=== PATIENT | male | born 1955 | race Caucasian/White ===

== ENCOUNTER 2017-10-08 10:34 | Inpatient (IN) | payer OTHER ==
[~2017-10-08] VITALS: Ht 182.9 cm; Wt 131.7 kg
--- NOTE | 2017-10-08 10:56 | ED UPPER/LOWER EXTREMITY COMPL ---
History of Present Illness General Chief Complaint: Lower Extremity Problems Stated Complaint: BIBA S/P L KNEE BUCKLE AND SWELLING TO LOWER EXT Source: patient Exam Limitations: no limitations Vital Signs & Intake/Output Vital Signs & Intake/Output Vital Signs Date Time Temp Pulse Resp B/P B/P Pulse O2 O2 Flow FiO2 Mean Ox Delivery Rate 10/08 1606 102 186/87 10/08 1531 98.6 102 22 186/87 95 Room Air 10/08 1406 98.4 86 15 198/93 94 Room Air Room Air 10/08 1036 98.5 86 18 198/100 99 Allergies Coded Allergies: No Known Allergies (10/08/17) Reconcile Medications Bupropion HCl (Wellbutrin XL) (Unknown Strength) TAB.ER.24H (Unknown Dose) PO DAILY MENTAL HEALTH (Reported) Ibuprofen 600 MG TABLET 1 TAB PO Q6P PRN PAIN with food Metformin HCl (Unknown Strength) TABLET (Unknown Dose) PO BID DIABETES ( Reported) Oxycodone HCl/Acetaminophen (Percocet 5-325 MG Tablet) 5 MG-325 MG TABLET 1-2 TAB PO BID knee pain Zolpidem Tartrate (Ambien) (Unknown Strength) TABLET (Unknown Dose) PO QPM SLEEP (Reported) Triage Note: 62M BIBA FROM HOME AFTER L KNEE GAVE OUT WHILE GOING DOWN A STAIR. FELL DOWN THREE STEPS, AND WAS ON THE FLOOR SINCE YESTERDAY. DENIES HEADSTRIKE OR LOC. MALODOROUS OF URINE. NOTABLE LLE SWELLING Triage Nurses Notes Reviewed? yes HPI: Patient presents for evaluation of a left knee injury that occurred last night. Patient states over the years is knee has had episodes of achiness that he attributed to "old age". He states he was going down a set of 3 stairs last night when the knee "buckled" causing him to fall. He suffered a small abrasion over the anterior aspect of the left leg. Since then he has had a severe sharp stabbing pain over the medial and posterior aspect of the left knee that worsens with palpation and movement. (Zee LINDSAY,Shan Felder) Past History Travel History Traveled to [place] past 21 day No Medical History Any Pertinent Medical History? see below for history Cardiovascular: hypertension, hyperlipidemia Psychiatric: anxiety, depression Psychosocial History What is your primary language Cuban Tobacco Use: Refused to answer (Zee LINDSAY,Shan Felder) Surgical History Surgical History: non-contributory Family History Hx Contributory? No (Ayesha LINDSAY,Juice) Review of Systems Review of Systems Constitutional: Reports: no symptoms. EENTM: Reports: no symptoms. Respiratory: Reports: no symptoms. Cardiovascular: Reports: no symptoms. Gastrointestinal/Abdominal: Reports: no symptoms. Genitourinary: Reports: no symptoms. Musculoskeletal: Reports: see HPI. Skin: Reports: no symptoms. Neurological/Psychological: Reports: no symptoms. Hematologic/Endocrine: Reports: no symptoms. Immunological: Reports: no symptoms. All Other Systems: Reviewed and Negative (Zee LINDSAY,Shan Felder) Physical Exam Physical Exam General Appearance: SEE BELOW Comments: Gen.: Well-nourished, well-developed, no acute respiratory distress. Head: Normocephalic, atraumatic. Eyes: Normal inspection bilaterally Ears: Normal inspection bilaterally Nose: Normal inspection Throat/mouth : Moist mucosa Neck: Supple, full range of motion, no goiter Heart: Regular rate and rhythm Lungs: Quiet respirations Back: Normal range of motion Extremities: Left knee: Tenderness, soft tissue swelling and mild ecchymoses of the medial aspect of the left knee, the left thigh is nontender, the left ankle and foot are nontender. Easily palpable left dorsalis pedis and posterior tibialis pulses. Sensation to the foot and ankle is intact. Neurologic: Cranial nerves grossly intact, speech is clear Skin: warm and dry Psychiatric: Calm, cooperative, no apparent delusions or hallucinations (Zee LINDSAY,Shan Felder) Progress Plan of Care: Orders Procedure Date/time Status Regular Diet 10/08 D Active Patient Data 10/08 1618 Active URINALYSIS 10/08 1545 Active OXYGEN SETUP (GEN) 10/08 1541 Active Saline Lock 10/08 1541 Active Admit to inpatient 10/08 1541 Active Vital Signs 10/08 1541 Active Activity/Ambulation 10/08 1541 Active Code Status 10/08 1541 Active Durable Medical Equipment 10/08 1255 Active ETHANOL 10/08 1110 Complete CREATINE PHOSPHOKINASE 10/08 1110 Complete CBC WITHOUT DIFFERENTIAL 10/08 1110 Complete BASIC METABOLIC PANEL 10/08 1110 Complete Current Medications Sig/Shan Start time Last Medication Dose Stop Time Status Admin Sodium Chloride 1,000 ML BOLUS ONE 10/08 1545 AC 10/08 (Normal Saline 0.9%) 10/08 1644 1606 Laboratory Tests 10/08/17 1157: Anion Gap 10, Estimated GFR > 60, BUN/Creatinine Ratio 26.3 H, Glucose 120 H, Calcium 9.8, Creatine Kinase 402 H, CBC w Diff NO MAN DIFF REQ, RBC 4.34 L, MCV 85.8, MCH 30.1, MCHC 35.1, RDW 14.5, MPV 7.5, Gran % 78.1 H, Lymphocytes % 8.9 L, Monocytes % 12.5 H, Eosinophils % 0.2, Basophils % 0.3, Absolute Granulocytes 8.4 H, Absolute Lymphocytes 1.0 L, Absolute Monocytes 1.3 H, Absolute Eosinophils 0, Absolute Basophils 0, Serum Alcohol < 10.0 Radiology Impression: PATIENT: MELISSA MORALES PRESENT AGE: 62 PATIENT ACCOUNT NO: [id number] : 53 LOCATION: [facility] ORDERING PHYSICIAN: Shan Koch MD SERVICE DATE: 10/08/17 EXAM TYPE: RAD - XRY-KNEE COMPLETE LEFT; [id number], LEFT EXAMINATION: XR KNEE, LEFT XR TIBIA AND FIBULA, LEFT CLINICAL INFORMATION: Status post fall. Medial left knee pain/tenderness. COMPARISON: None TECHNIQUE: AP and lateral views of the left tibia and fibula were obtained. FINDINGS: There is a comminuted, mildly depressed tibial plateau fracture along the lateral aspect of the proximal tibia. No other tibial, femoral, or fibular fracture demonstrated. The ankle mortise appears congruent. Plantar calcaneal spurring. Distal Achilles enthesopathy. Age-indeterminate focal mineralization along the dorsal aspect of the navicular, favor nonacute. Moderate knee joint effusion. IMPRESSION: Comminuted, mildly depressed fracture of the lateral aspect of the tibial plateau. DICTATED BY: Wilmer Frazier MD DATE/TIME DICTATED:10/08/171215 MARITIME OFFICER:DRE DATE/TIME TRANSCRIBED:10/08/171215 CONFIDENTIAL, DO NOT COPY WITHOUT APPROPRIATE AUTHORIZATION. <Electronically signed in Other Vendor System> SIGNED BY: Wilmer Frazier MD 10/08/17 1234 Comments: 10/08/2017 11:11:01 AM Patient's nurse states that Melissa has provided additional information including the fact that he was on the floor for a good portion of the evening secondary to his injury. 10/08/2017 1:23:51 PM I have updated Melissa on x-ray report, orthopedist being paged. 10/08/2017 2:38:23 PM patient's case discussed with Dr. Henry suggest a compression dressing and knee immobilizer. He will see patient next week in his office. (Zee LINDSAY,Shan Felder) Differential Diagnosis: dislocation, fracture, sprain (Ayesha LINDSAY,Juice) Departure Departure Condition: Stable Clinical Impression Primary Impression: Tibial plateau fracture, left Qualifiers: Encounter type: initial encounter Fracture type: closed Qualified Code: S82.142A - Displaced bicondylar fracture of left tibia, initial encounter for closed fracture Referrals: Batool LINDSAY,Quinton Fritz Additional Instructions: No weightbearing on your left leg. Keep the knee immobilizer in place until you see Dr. Henry in follow-up. Use crutches when ambulating. Ice and elevation over the next 48 hours. Ibuprofen 600 mg every 6 hours as needed for pain. Add Percocet if necessary. Notify your primary care doctor of this emergency department visit and treatment plan (you might require medical clearance). He concerns or sudden worsening. Please note that there might be incidental findings in your evaluation that are unrelated to the current emergency department visit. Please notify your primary care doctor about this emergency department visit in order to obtain and review all of the testing performed so that these incidental findings can be monitored as needed. If you had an x-ray performed, please understand that some fractures or other findings may not be seen on the initial set of x-rays. If your symptoms persist you might need a repeat set of x-rays to check for such a fracture. If you had a laceration evaluated, please understand that foreign bodies such as glass or wood may not be visible to the naked eye or on plain x-rays. If the wound becomes red, swollen, increasingly more painful or if there is any drainage from the wound, please have it reevaluated by a physician for the possibility of a retained foreign body. If you're unable to follow up as outlined in the discharge instructions please return to the emergency department. Thank you for choosing the Emergency Department for your care. It was a pleasure to serve you today. Shan Koch M.D. [facility] Departure Forms: Customer Survey General Discharge Information Prescriptions: Current Visit Scripts Ibuprofen 1 TAB PO Q6P PRN PAIN #20 TAB with food Oxycodone HCl/Acetaminophen (Percocet 5-325 MG Tablet) 1-2 TAB PO BID #30 TAB Admission Note Documentation of Exam: Documentation of any treatments & extenuating circumstances including Concerns Regarding Discharge (functional status, medication knowledge or non-compliance, living conditions, etc.) that warrant an admission rather than observation: Patient is suffering severe left knee pain secondary to a displaced tibial plateau fracture but will ultimately require surgical intervention. Despite parenteral narcotics and oral narcotics he is still severely debilitated and unable to ambulate safely even with a knee immobilizer and crutches. I feel she would not be able to comply with outpatient treatment. At this point he requires hospitalization for narcotic pain relievers, ice and elevation of the affected extremity and orthopedic consultation. I feel this patient will require a multiple day hospitalization. (Zee LINDSAY,Shan Felder) Departure Disposition: STILL A PATIENT Admission Note Spoke With: Mae LINDSAY,Mary Documentation of Exam: Documentation of any treatments & extenuating circumstances including Concerns Regarding Discharge (functional status, medication knowledge or non-compliance, living conditions, etc.) that warrant an admission rather than observation: (Ayesha LINDSAY,Juice)
[2017-10-08 12:00] LABS: ABSOLUTE BASOPHIL COUNT 0 /CUMM (0.0-0.2); ABSOLUTE EOSINOPHIL COUNT 0 /CUMM (0.0-0.7); ABSOLUTE GRANULOCYTE CT 8.4 /CUMM (1.4-6.5); ABSOLUTE MONOCYTE COUNT 1.3 /CUMM (0.10-0.60); BASOPHIL % 0.3 % (0.0-2.0); EOSINOPHIL % 0.2 % (0-5); GRANULOCYTE % 78.1 % (42.2-75.2); HEMATOCRIT 37.2 % (42-52); MEAN CORPUSCULAR HGB 30.1 PG (27.0-31.0); MEAN CORPUSCULAR HGB CONC 35.1 G/DL (33.0-37.0); MEAN CORPUSCULAR VOLUME 85.8 FL (80.0-94.0); MEAN PLATELET VOLUME 7.5 FL (7.4-10.4); PLATELET COUNT 178 /CUMM (130-400); RBC DISTRIBUTION WIDTH 14.5 % (11.5-14.5); RED BLOOD CELL CT 4.34 /CUMM (4.70-6.10); WHITE BLOOD CELL COUNT 10.7 /CUMM (4.8-10.8)
--- NOTE | 2017-10-08 12:34 | RADIOLOGY REPORT ---
EXAMINATION: XR KNEE, LEFT XR TIBIA AND FIBULA, LEFT CLINICAL INFORMATION: Status post fall. Medial left knee pain/tenderness. COMPARISON: None TECHNIQUE: AP and lateral views of the left tibia and fibula were obtained. FINDINGS: There is a comminuted, mildly depressed tibial plateau fracture along the lateral aspect of the proximal tibia. No other tibial, femoral, or fibular fracture demonstrated. The ankle mortise appears congruent. Plantar calcaneal spurring. Distal Achilles enthesopathy. Age-indeterminate focal mineralization along the dorsal aspect of the navicular, favor nonacute. Moderate knee joint effusion. IMPRESSION: Comminuted, mildly depressed fracture of the lateral aspect of the tibial plateau.
[2017-10-08] MEDS ORDERED: WELLBUTRIN XL300 M2 PO (12:55)
[2017-10-08] MEDS ORDERED: METFORMIN HCL500 M3 PO (12:55)
[2017-10-08] MEDS ORDERED: AMBIEN5 M1 PO (12:55)
[2017-10-08] MEDS ORDERED: IBUPROFEN600 M1 PO (14:48)
[2017-10-08] MEDS ORDERED: PERCOCET 5-3251 EACH PO (14:48)
--- NOTE | 2017-10-08 16:11 | History & Physical ---
General Information and HPI Allergies/Medications Allergies: Coded Allergies: No Known Allergies (10/08/17) Home Med list Bupropion HCl (Wellbutrin XL) (Unknown Strength) TAB.ER.24H (Unknown Dose) PO DAILY MENTAL HEALTH (Reported) Ibuprofen 600 MG TABLET 1 TAB PO Q6P PRN PAIN with food Metformin HCl (Unknown Strength) TABLET (Unknown Dose) PO BID DIABETES ( Reported) Oxycodone HCl/Acetaminophen (Percocet 5-325 MG Tablet) 5 MG-325 MG TABLET 1-2 TAB PO BID knee pain Zolpidem Tartrate (Ambien) (Unknown Strength) TABLET (Unknown Dose) PO QPM SLEEP (Reported) Past History Travel History Traveled to [place] past 21 day No Medical History Cardiovascular: hypertension, hyperlipidemia Psychiatric: anxiety, depression Core Measures/Misc (01/03) Sepsis (View protocol) If YES complete Sepsis Event Note If YES complete Sepsis Event Note
--- NOTE | 2017-10-08 16:52 | History & Physical ---
Robert Mcgarry MDapna 10/08/17 2073: General Information and HPI History of Present Illness: 62-year-old gentleman with past medical history of hypertension, hyperlipidemia, anxiety, depression, came to [facility] with complaints of fall yesterday. Patient recently came from [place] to this fibest's house. Patient missed his blood pressure medication for the past 4 days. Patient took wine last night had his dinner and about to get down from the stairs he slipped balance and fell 3 stairs down. He denies loss of consciousness, seizures, bowel or bladder incontinence, chest pain, palpitations, headache, head injury. He was immediately taken to the couch by his fibest and her son. He was oriented well during that time. He woke up today morning and found himself in the floor. Patient denies cardiac, renal, diabetes history. He endorses that he is compliant with his medications. Patient also denies that he has never had chest pain, palpitations are never seen by any janitor and cleaner in the past. At baseline patient does not use cane or walker. Patient used to smoke in the past but drinks beer or wine occasionally on and off. Last night he was under the influence of alcohol. Allergies/Medications Allergies: Coded Allergies: No Known Allergies (10/08/17) Home Med list Bupropion HCl (Wellbutrin XL) (Unknown Strength) TAB.ER.24H 10 MG PO DAILY MENTAL HEALTH (Reported) Ibuprofen 600 MG TABLET 1 TAB PO Q6P PRN PAIN with food Metformin HCl (Unknown Strength) TABLET 500 MG PO BID DIABETES (Reported) Oxycodone HCl/Acetaminophen (Percocet 5-325 MG Tablet) 5 MG-325 MG TABLET 1-2 TAB PO BID knee pain Zolpidem Tartrate (Ambien) (Unknown Strength) TABLET 5 MG PO QPM SLEEP ( Reported) Compliance With Home Meds: GOOD Past History Travel History Traveled to [place] past 21 day No Medical History Cardiovascular: hypertension, hyperlipidemia Respiratory: NONE Gastrointestinal: NONE Hepatic: NONE Psychiatric: anxiety, depression Surgical History Surgical History: non-contributory Past Family/Social History Family History Relations & Conditions if any Relation not specified for: *No pertinent family history Psychosocial History Where do you live? Home Who Do You Live With? self Services at Home: None Primary Language: Kyrgyz Smoking Status: Never Smoked ETOH Use: occasional use Functional Ability ADLs Independent: dressing, eating, toileting, bathing. Ambulation: independent IADLs Independent: shopping, housework, finances, food prep, telephone, transportation , medication admin. Review of Systems Review of Systems Constitutional: Reports: no symptoms. Cardiovascular: Reports: no symptoms. Respiratory: Reports: no symptoms. GI: Reports: no symptoms. Genitourinary: Reports: no symptoms. Musculoskeletal: Reports: no symptoms. Skin: Reports: no symptoms. Exam & Diagnostic Data Last 24 Hrs of Vital Signs/I&O Vital Signs Date Time Temp Pulse Resp B/P B/P Pulse O2 O2 Flow FiO2 Mean Ox Delivery Rate 10/08 1942 Room Air 10/08 1843 170/76 10/08 1825 98.5 90 20 178/92 93 10/08 1638 98.7 89 18 164/71 95 Room Air 10/08 1606 102 186/87 10/08 1531 98.6 102 22 186/87 95 Room Air 10/08 1406 98.4 86 15 198/93 94 Room Air Room Air 10/08 1036 98.5 86 18 198/100 99 Physical Exam General Appearance Alert, Oriented X3, Cooperative, No Acute Distress Cardiovascular Regular Rate, Normal S1, Normal S2, No Murmurs Lungs Clear to Auscultation Abdomen Normal Bowel Sounds, Soft, No Tenderness Neurological Normal Speech, Strength at 5/5 X4 Ext, Normal Tone, Sensation Intact, Cranial Nerves 3-12 NL Extremities No Cyanosis, No Edema, Normal Pulses, left knee- in knee immobiliser Last 24 Hrs of Labs/Germain: Laboratory Tests 10/08/17 1750: Urine Color Pending, Urine Clarity Pending, Urine pH Pending, Ur Specific [place] Pending, Urine Protein Pending, Urine Ketones Pending, Urine Nitrite Pending, Urine Bilirubin Pending, Urine Urobilinogen Pending, Ur Leukocyte Esterase Pending, Ur Microscopic SEDIMENT EXAMINED, Urine RBC Pending, Urine Hemoglobin Pending, Urine Glucose Pending 10/08/17 1157: Anion Gap 10, Estimated GFR > 60, BUN/Creatinine Ratio 26.3 H, Glucose 120 H, Calcium 9.8, Creatine Kinase 402 H, CBC w Diff NO MAN DIFF REQ, RBC 4.34 L, MCV 85.8, MCH 30.1, MCHC 35.1, RDW 14.5, MPV 7.5, Gran % 78.1 H, Lymphocytes % 8.9 L, Monocytes % 12.5 H, Eosinophils % 0.2, Basophils % 0.3, Absolute Granulocytes 8.4 H, Absolute Lymphocytes 1.0 L, Absolute Monocytes 1.3 H, Absolute Eosinophils 0, Absolute Basophils 0, Serum Alcohol < 10.0 Diagnostic Data Other Results Knee x-ray Comminuted, mildly depressed fracture of the lateral aspect of the tibial plateau. Assessment/Plan Assessment: 62-year-old gentleman with past medical history of hypertension, hyperlipidemia, anxiety, depression, came to [facility] with complaints of fall yesterday. Admission vitals Temperature 98.5, pulse 86, respiratory rate 18, blood pressure 198/100----> 164 /71, 99 at room air. Admission labs WBC 10.7, hemoglobin 13.1, hematocrit 37.2, granulocytes 78.1, sodium 140, potassium 4.1, Glucose 120, calcium 9.8, creatinine kinase 402, serum alcohol less than 10 Urine-pending Imaging Knee x-ray Comminuted, mildly depressed fracture of the lateral aspect of the tibial plateau. ED medications Morphine 6 mg subcutaneous once, naproxen 500 mg once, Percocet 1 tab once, Lipitor 10 mg IV once, morphine 4 mg IV once, normal saline bolus thousand ML once. ------ Assessment and plan 1. Hypertensive urgency 2. Tibial fracture 3. Diabetes * Admit in telemetry * Blood pressure monitoring. We will maintain a blood pressure, dropping not more than 20% to avoid any stroke. We will start him on amlodipine and hydralazine as needed. * Tibial fracture-Dr. jones has been contacted over the phone who suggested to do knee mobilization and brace.we will continue the same. * Accu-Cheks. * Diet-heart healthy diet * Code-full code As Ranked By This Provider Problem List: 1. Tibial plateau fracture, left Qualifiers Encounter type: initial encounter Fracture type: closed Qualified Code: S82.142A - Displaced bicondylar fracture of left tibia, initial encounter for closed fracture Core Measures/Misc (01/03) Acute Coronary Syndrome ACS Diagnosis: No Congestive Heart Failure Congestive Heart Failure Diagnosis No Cerebrovascular Accident CVA/TIA Diagnosis: No VTE (View Protocol) VTE Risk Factors Age>40 No Mechanical VTE Prophylaxis d/t Other No VTE Pharm Prophylaxis d/t Other Sepsis (View protocol) Sepsis Present: No If YES complete Sepsis Event Note If YES complete Sepsis Event Note Landen LINDSAY,[facility] 10/08/17 1701: Core Measures/Misc (01/03) Sepsis (View protocol) If YES complete Sepsis Event Note If YES complete Sepsis Event Note Resident Review Statement Resident Statement: examined this patient, discussed with manufacturing intern Other Findings: H Mr. Diane is a pleasant 62-year-old gentleman with past medical history of hypertension, anxiety and depression who was brought in by ambulance after he had a fall. Patient states he was in his usual state of health and is currently visiting [place] from [place] when yesterday at approximately 9:45 PM he felt that his left knee "gave out" and fell down 3 stairs. Denies any head strike head strike or loss of consciousness. After he fell he had help getting onto a couch where he spent the entire night and although was in a significant amount of discomfort managed to get some rest. This morning when he got up he was unable to move prompting his fianc Salvador to call the ambulance who brought him into the emergency department. Patient states that pain was up to a 10 out of 10 in severity. Worse with movement. He was worked up in the ER and unable to go home due to significant immobility and pain and discomfort. Patient otherwise reports good medication compliance and states that he's recently lost weight over the past few years. Patient is a former smoker and recreational alcohol user. He last had some wine approximately 4 units last evening. Patient's pharmacy [facility] Address: [id number] [place] [address] [address], [place] [address] Hours: ROS At the time of clinical interaction the patient denied any fever, chills, nausea , vomiting. Denied any diarrhea or GI upset. E Temperature 98.5, pulse rate 86, respirations 18, blood pressure 198/100, saturating 99% on room air. Gen.: Well-nourished, well-developed, no acute respiratory distress. Head: Normocephalic, atraumatic. Eyes: N So the clinical historyormal inspection bilaterally Ears: Normal inspection bilaterally Nose: Normal inspection Throat/mouth : Moist mucosa Neck: Supple, full range of motion, no goiter Heart: Regular rate and rhythm Lungs: Quiet respirations Back: Normal range of motion Extremities: Left knee: Tenderness, soft tissue swelling. Entired leg in immobilizer. Easily palpable left dorsalis pedis and posterior tibialis pulses. Sensation to the foot and ankle is intact. Neurologic: Cranial nerves grossly intact, speech is clear Skin: warm and dry Psychiatric: Calm, cooperative, no apparent delusions or hallucinations LABS: As Above Imaging: XR KNEE, LEFT XR TIBIA AND FIBULA, LEFT IMPRESSION: Comminuted, mildly depressed fracture of the lateral aspect of the tibial plateau. A Mr. Diane is a pleasant 62-year-old gentleman with past medical history of hypertension, anxiety and depression who was brought in by ambulance after he had a fall. In the emergency department the patient received normal saline. Patient also received 10 mg of labetalol. He also had a consultation with the office of Dr. Jones who recommended the patient will be seen next week. Due to elevated pressure the patient will be admitted to the telemetry service. #Left Tibia mildly depressed fracture #Hypertensive urgency #History of anxiety #History of depression #History of diabetes. Admit patient to telemetry service. Vital signs every 2 hours. Goal blood pressure not to decrease BP more than and 25% in 24 hours. Blood pressure is elevated likely due to pain. Formal orthopedic consultation obtained. We will begin the patient on amlodipine 10 mg daily. If continues to be hypertensive will consider IV hydralazine as needed. Fingersticks 3 times a day at bedtime NovoLog sliding scale. Pain control with ibuprofen and Percocet. For breakthrough pain may use morphine. PT consult in AM Heart healthy diet DVT prophylaxis with Lovenox Patient is a full code. Mae,Mary 10/08/17 1702: Core Measures/Misc (01/03) Sepsis (View protocol) If YES complete Sepsis Event Note If YES complete Sepsis Event Note Attending MD Review Statement Attending Statement Attending MD Statement: examined this patient, discuss w/resident/PA/SIFTING OPERATOR, agreed w/resident/PA/SIFTING OPERATOR, discussed with family, reviewed EMR data (avail), discussed with nursing, discussed with case mgmt, reviewed images, amended to note Attending Assessment/Plan: 62 O/M resident of [place] here to visit with pmh of hypertension, arthritis and depression on meds comes with trip and fall with uncontrolled hypertension. Patient found to have Comminuted, mildly depressed fracture of the lateral aspect of the tibial plateau. Patient required iv labetalol in ER. Patient is known hypertensive non compliant with his medication and BP 198/100 on arrival. Needs orthopedics consult. Start Norvasc and iv hydralazine as needed. Pain control and PT consult. gi/dvt prophylaxis. full code. Plan of care d/wed patient and family bedside in ER. Core Measures/Misc (01/03) Sepsis (View protocol) If YES complete Sepsis Event Note If YES complete Sepsis Event Note Attending MD Review Statement Attending Statement Attending MD Statement: examined this patient, discuss w/resident/PA/SIFTING OPERATOR, agreed w/resident/PA/SIFTING OPERATOR, discussed with family, reviewed EMR data (avail), discussed with nursing, discussed with case mgmt, reviewed images, amended to note Attending Assessment/Plan: 62 O/M resident of [place] here to visit with pmh of hypertension, arthritis and depression on meds comes with trip and fall with uncontrolled hypertension. Patient found to have Comminuted, mildly depressed fracture of the lateral aspect of the tibial plateau. Patient required iv labetalol in ER. Patient is known hypertensive non compliant with his medication and BP 198/100 on arrival. Needs orthopedics consult. Start Norvasc and iv hydralazine as needed. Pain control and PT consult. gi/dvt prophylaxis. full code. Plan of care d/wed patient and family bedside in ER.
[2017-10-08 18:25] VITALS: BP 178/92
[2017-10-08 22:21] VITALS: BP 176/88
[2017-10-08 22:46] VITALS: BP 180/84
--- NOTE | 2017-10-09 04:16 | PN- Housestaff ---
See Addendum Subjective Follow-up For: Hypertensive Urgency Tele-Events Since Last Visit: NSR 86-93 AR: .18 Subjective: Mr. Diane was seen and examined this morning. He is resting comfortably in bed. States that his pain is better controlled. He was able to get his leg in a stable position and ase a result of this he was able to get rest at night. Pain rated 4 out of 10 in severity. Denies any vision changes or any neurological symptoms. Tolerated PO intake well and had supper prior to going to sleep. Review of Systems Constitutional: Reports: see HPI. Objective Last 24 Hrs of Vital Signs/I&O Vital Signs Date Time Temp Pulse Resp B/P B/P Pulse O2 O2 Flow FiO2 Mean Ox Delivery Rate 10/08 2302 96 180/84 10/08 2246 180/84 10/08 2221 99.7 91 18 176/88 95 10/08 1942 Room Air 10/08 1843 170/76 10/08 1825 98.5 90 20 178/92 93 10/08 1638 98.7 89 18 164/71 95 Room Air 10/08 1606 102 186/87 10/08 1531 98.6 102 22 186/87 95 Room Air 10/08 1406 98.4 86 15 198/93 94 Room Air Room Air 10/08 1036 98.5 86 18 198/100 99 Intake & Output 10/09 0800 10/09 0000 10/08 1600 Intake Total 300 1120 Output Total 650 225 Balance -350 895 Intake, IV 1000 Intake, Oral 300 120 Output, Urine 650 225 Patient 135.681 kg Weight Weight Bed scale Measurement Method Physical Exam General Appearance: Alert, Oriented X3, Cooperative Cardiovascular: Regular Rate, Normal S1, Normal S2 Lungs: Clear to Auscultation Abdomen: Normal Bowel Sounds, Soft, No Tenderness Neurological: Sensation Intact, Cranial Nerves 3-12 NL Extremities: Left Leg in immobilizer Current Medications: Current Medications Sig/Shan Start time Last Medication Dose Route Stop Time Status Admin Amlodipine Besylate 10 MG DAILY 10/09 0900 AC PO Amlodipine Besylate 5 MG DAILY 10/08 2245 DC 10/08 PO 2302 Amlodipine Besylate 5 MG DAILY 10/08 1745 DC 10/08 PO 1843 Enoxaparin Sodium 40 MG DAILY 10/08 1800 AC 10/08 SC 1843 Ibuprofen 600 MG TID PRN 10/08 1745 AC PO Insulin Aspart 0 TIDAC 10/09 0800 AC SC Labetalol HCl 0 .STK-MED ONE 10/08 1558 DC IV Labetalol HCl 10 MG ONCE ONE 10/08 1545 DC 10/08 IV 10/08 1546 1606 Morphine Sulfate 2 MG Q6P PRN 10/08 1745 AC 10/08 IV 2302 Morphine Sulfate 0 .STK-MED ONE 10/08 1558 DC .ROUTE Morphine Sulfate 4 MG ONCE ONE 10/08 1545 DC 10/08 IV 10/08 1546 1606 Morphine Sulfate 0 .STK-MED ONE 10/08 1216 DC .ROUTE Morphine Sulfate 6 MG ONCE ONE 10/08 1100 DC 10/08 SC 10/08 1101 1219 Naproxen 0 .STK-MED ONE 10/08 1448 DC PO Naproxen 500 MG ONCE ONE 10/08 1445 DC 10/08 PO 10/08 1446 1450 Oxycodone/ 1 TAB Q6P PRN 10/08 1745 10/09 Acetaminophen PO 0428 Oxycodone/ 0 .STK-MED ONE 10/08 1448 DC Acetaminophen PO Oxycodone/ 1 TAB ONCE ONE 10/08 1445 DC 10/08 Acetaminophen PO 10/08 1446 1450 Sodium Chloride 1,000 ML BOLUS ONE 10/08 1545 DC 10/08 IV 10/08 1644 1606 Last 24 Hrs of Lab/Germain Results Last 24 Hrs of Labs/Mics: Laboratory Tests 10/08/17 1750: Urine Color YEL, Urine Clarity CLEAR, Urine pH 6.0, Ur Specific [place] 1.020, Urine Protein NEG, Urine Ketones NEG, Urine Nitrite NEG, Urine Bilirubin NEG, Urine Urobilinogen 0.2, Ur Leukocyte Esterase TRACE H, Ur Microscopic SEDIMENT EXAMINED, Urine RBC RARE, Urine WBC 3-5 H, Ur Epithelial Cells RARE, Hyaline Casts 1-3 H, Urine Mucus FEW, Urine Hemoglobin NEG, Urine Glucose 100 H 10/08/17 1157: Anion Gap 10, Estimated GFR > 60, BUN/Creatinine Ratio 26.3 H, Glucose 120 H, Calcium 9.8, Creatine Kinase 402 H, CBC w Diff NO MAN DIFF REQ, RBC 4.34 L, MCV 85.8, MCH 30.1, MCHC 35.1, RDW 14.5, MPV 7.5, Gran % 78.1 H, Lymphocytes % 8.9 L, Monocytes % 12.5 H, Eosinophils % 0.2, Basophils % 0.3, Absolute Granulocytes 8.4 H, Absolute Lymphocytes 1.0 L, Absolute Monocytes 1.3 H, Absolute Eosinophils 0, Absolute Basophils 0, Serum Alcohol < 10.0 Assessment/Plan Assessment: Mr. Diane is a pleasant 62-year-old gentleman with past medical history of hypertension, anxiety and depression who was brought in by ambulance after he had a fall. In the emergency department the patient received normal saline. Patient also received 10 mg of labetalol. He also had a consultation with the office of Dr. Henry who recommended the patient will be seen next week. Due to elevated pressure the patient will be admitted to the telemetry service. #Left Tibia mildly depressed fracture #Hypertensive urgency #History of anxiety #History of depression #History of diabetes. Continue on telemetry service. Vital signs every 4 hours. Goal blood pressure not to decrease BP more than and 25% in 24 hours. Blood pressure is elevated likely due to pain. Formal orthopedic consultation obtained. We will continue the patient on amlodipine 10 mg daily. If continues to be hypertensive will consider IV hydralazine as needed. Fingersticks 3 times a day at bedtime NovoLog sliding scale. Pain control with ibuprofen and Percocet. For breakthrough pain may use morphine. PT consult ordered for later this am. Please confirm medication list, patient is on Edarbyclor, but is not sure on the dose. Pharmacy: Patient's pharmacy [email or web address] Address: [address] [place] [address], [place] [address] T: Heart healthy diet DVT prophylaxis with Lovenox Patient is a full code. Problem List: 1. Tibial plateau fracture, left Pain Ratin Pain Location: Left Leg Pain Goal: Remain pain free Pain Plan: Tylenol and morphine Tomorrow's Labs & Rationales: CBC: Montor H/H in the setting of fall, BEP: Monitor electrolytes in the setting of acute illness
[2017-10-09 06:54] VITALS: BP 168/90
[2017-10-09 08:00] VITALS: BP 180/84
[2017-10-09 12:00] VITALS: BP 188/80
[2017-10-09 14:40] VITALS: BP 180/90
[2017-10-09 19:13] VITALS: BP 164/74
--- NOTE | 2017-10-09 20:21 | Cons- Cardiology ---
General Information and HPI Consulting Request Date of Consult: 10/09/17 Requested By: Mary Wall MD Reason for Consult: Hypertension History of Present Illness: The patient is a pleasant 62-year-old male who is visiting [place] from [place]. He presents after a fall. He fell on the stairs in his [facility] house, and he sustained a left tibia fracture. He has a history of hypertension which has been under control on Edarbyclor. He notes that he forgot to bring his medications when he traveled to [place], and he has been off medications for 4 days. He has had no chest pain. He notes mild dyspnea on exertion with activities such as climbing stairs. He does not have any history of heart disease. He did not have any lightheadedness or dizziness at the time of the fall. No palpitations. No nausea or vomiting. Allergies/Medications Allergies: Coded Allergies: No Known Allergies (10/08/17) Home Med List: Bupropion HCl (Wellbutrin XL) (Unknown Strength) TAB.ER.24H 10 MG PO DAILY MENTAL HEALTH (Reported) Ibuprofen 600 MG TABLET 1 TAB PO Q6P PRN PAIN with food Metformin HCl (Unknown Strength) TABLET 500 MG PO BID DIABETES (Reported) Oxycodone HCl/Acetaminophen (Percocet 5-325 MG Tablet) 5 MG-325 MG TABLET 1-2 TAB PO BID knee pain Zolpidem Tartrate (Ambien) (Unknown Strength) TABLET 5 MG PO QPM SLEEP ( Reported) Current Medications: Current Medications Sig/Shan Start time Last Medication Dose Route Stop Time Status Admin Amlodipine Besylate 5 MG DAILY 10/10 0900 AC PO Amlodipine Besylate 10 MG DAILY 10/09 0900 DC 10/09 PO 0855 Amlodipine Besylate 5 MG DAILY 10/08 2245 DC 10/08 PO 2302 Amlodipine Besylate 5 MG DAILY 10/08 1745 DC 10/08 PO 1843 Enoxaparin Sodium 40 MG DAILY 10/08 1800 AC 10/09 SC 0850 Hydrochlorothiazide 12.5 MG ONCE ONE 10/09 1715 DC 10/09 PO 10/09 1716 1725 Hydrochlorothiazide 12.5 MG DAILY 10/09 1600 AC 10/09 PO 1607 Ibuprofen 600 MG TID PRN 10/08 1745 AC 10/09 PO 1607 Insulin Aspart 0 TIDAC 10/09 1200 AC SC Insulin Aspart 0 TIDAC 10/09 0800 DC SC Losartan Potassium 50 MG ONCE ONE 10/09 1500 CAN PO 10/09 1501 Losartan Potassium 50 MG DAILY 10/09 1200 AC 10/09 PO 1317 Morphine Sulfate 2 MG Q6P PRN 10/08 1745 AC 10/09 IV 1447 Oxycodone/ 1 TAB Q6P PRN 10/08 1745 AC 10/09 Acetaminophen PO 1225 Review of Systems Review of Systems: No rash. No tremor. No syncope. All other systems were reviewed, and were noted to be negative. Past History Travel History Traveled to [place] past 21 day No Medical History Blood Transfusion Hx: No Cardiovascular: hypertension, hyperlipidemia Respiratory: NONE Gastrointestinal: NONE Hepatic: NONE Musculoskeletal: NEW TIB FX L ARTHRITIS Psychiatric: anxiety, depression Surgical History Surgical History: non-contributory Family History Relations & Conditions If Any: MOTHER Stroke Psychosocial History Where Do You Live? Home Who Do You Live With? self Services at Home: None Primary Language: Vietnamese Smoking Status: Never Smoked ETOH Use: occasional use Illicit Drug Use: denies illicit drug use Functional Ability ADLs Independent: dressing, eating, toileting, bathing. Ambulation: independent IADLs Independent: shopping, housework, finances, food prep, telephone, transportation , medication admin. Exam & Diagnostic Data Vital Signs and I&O Vital Signs Date Time Temp Pulse Resp B/P B/P Pulse O2 O2 Flow FiO2 Mean Ox Delivery Rate 10/09 1913 99.1 102 24 164/74 94 10/09 1440 99.9 106 20 180/90 96 Room Air 10/09 1317 80 188/80 10/09 1200 106 188/80 10/09 1200 106 188/80 10/09 0855 90 168/90 10/09 0800 93 180/84 10/09 0800 93 180/84 10/09 0654 98.1 87 20 168/90 95 Room Air 10/08 2302 96 180/84 10/08 2246 180/84 10/08 2221 99.7 91 18 176/88 95 Intake & Output 10/09 1600 10/09 0800 10/09 0000 10/08 1600 10/08 0800 10/08 0000 Intake Total 011 880 1325 Output Total 1450 650 225 Balance -1230 -350 895 Intake, IV 20 1000 Intake, Oral 200 300 120 Output, Urine 1450 650 225 Patient 299 lb Weight Weight Bed scale Measurement Method Physical Exam: Gen: The patient is in no acute distress HEENT: Normal nose, ears, and oropharynx. Pupils equal bilaterally. Conjunctiva normal. Neck: Supple with no JVD, no masses, and no thyromegaly Lungs: Clear to auscultation with normal respiratory effort Heart: RRR, S1, S2, no murmurs. No peripheral edema, 2+ pulses in the lower extremities bilaterally Abdomen: Soft, nontender, no masses. No hepatomegaly. No splenomegaly Extremities: No clubbing or cyanosis. Normal muscle strength in the upper and lower extremities Skin: Normal skin turgor with no skin ulcers or lesions noted. Neuro: Cranial nerves intact. Sensation intact Psych: Alert and oriented x 3 with appropriate affect Labs/[place] Results: Laboratory Tests 10/08 10/08 1750 1157 Chemistry Sodium (137 - 145 mmol/L) 140 Potassium (3.5 - 5.1 mmol/L) 4.1 Chloride (98 - 107 mmol/L) 102 Carbon Dioxide (22 - 30 mmol/L) 28 Anion Gap (5 - 16) 10 BUN (9 - 20 mg/dL) 21 H Creatinine (0.7 - 1.2 mg/dL) 0.8 Estimated GFR (>60 ml/min) > 60 BUN/Creatinine Ratio (7 - 25 %) 26.3 H Glucose (65 - 99 mg/dL) 120 H Calcium (8.4 - 10.2 mg/dL) 9.8 Creatine Kinase (55 - 170 U/L) 402 H Hematology CBC w Diff NO MAN DIFF REQ WBC (4.8 - 10.8 /CUMM) 10.7 RBC (4.70 - 6.10 /CUMM) 4.34 L Hgb (14.0 - 18.0 G/DL) 13.1 L Hct (42 - 52 %) 37.2 L MCV (80.0 - 94.0 FL) 85.8 MCH (27.0 - 31.0 PG) 30.1 MCHC (33.0 - 37.0 G/DL) 35.1 RDW (11.5 - 14.5 %) 14.5 Plt Count (130 - 400 /CUMM) 178 MPV (7.4 - 10.4 FL) 7.5 Gran % (42.2 - 75.2 %) 78.1 H Lymphocytes % (20.5 - 51.1 %) 8.9 L Monocytes % (1.7 - 9.3 %) 12.5 H Eosinophils % (0 - 5 %) 0.2 Basophils % (0.0 - 2.0 %) 0.3 Absolute Granulocytes (1.4 - 6.5 /CUMM) 8.4 H Absolute Lymphocytes (1.2 - 3.4 /CUMM) 1.0 L Absolute Monocytes (0.10 - 0.60 /CUMM) 1.3 H Absolute Eosinophils (0.0 - 0.7 /CUMM) 0 Absolute Basophils (0.0 - 0.2 /CUMM) 0 Toxicology Serum Alcohol (<10 MG/DL) < 10.0 Urines Urine Color (YEL,AMB,STR) YEL Urine Clarity (CLEAR) CLEAR Urine pH (5.0 - 8.0) 6.0 Ur Specific [place] (1.001 - 1.035) 1.020 Urine Protein (NEG,<30 MG/DL) NEG Urine Ketones (NEG) NEG Urine Nitrite (NEG) NEG Urine Bilirubin (NEG) NEG Urine Urobilinogen (0.1 - 1.0 EU/dl) 0.2 Ur Leukocyte Esterase (NEG) TRACE H Ur Microscopic SEDIMENT EXAMINED Urine RBC (0 - 5 /HPF) RARE Urine WBC (0 - 2 /HPF) 3-5 H Ur Epithelial Cells (NONE,FEW) RARE Hyaline Casts (0/LPF) 1-3 H Urine Mucus (FEW,NONE) FEW Urine Hemoglobin (NEG) NEG Urine Glucose (N MG/DL) 100 H Diagnostic Data EKG Results EKG tracings independently reviewed, and reveals normal sinus rhythm at 91 with borderline T-wave abnormality. QTc is noted to be 493 Other Results Left lower extremity x-ray: Comminuted, mildly depressed fracture of the lateral aspect of the tibial plateau. Assessment/Plan Assessment/Plan The patient is a 62-year-old male with history of hypertension and hyperlipidemia who presents after a mechanical fall with a tibial fracture. His blood pressure is normally under control on Edarbyclor, which is a combination of an ARB and diuretic. He forgot to bring his medications to [place] and has been off hypertension medications for 4 days. Blood pressure was severely elevated on presentation. Blood pressure is now under control on losartan, hydrochlorthiazide, and amlodipine. Recommendations: * Continue current medications for blood pressure control. If blood pressure remains significantly elevated tomorrow, the losartan dose can be increased * Cardiac risk for surgery is acceptable. The patient is cleared from a cardiac standpoint for repair of the fracture. * Given the prolonged QT, would check a repeat EKG tomorrow Consult Acknowledgment - Thank you for your consult request.
[2017-10-09 23:00] VITALS: BP 176/80
[2017-10-10 03:05] VITALS: BP 148/78
[2017-10-10 06:51] VITALS: BP 150/78
[2017-10-10 08:23] LABS: ABSOLUTE BASOPHIL COUNT 0 /CUMM (0.0-0.2); ABSOLUTE EOSINOPHIL COUNT 0.3 /CUMM (0.0-0.7); ABSOLUTE GRANULOCYTE CT 6.7 /CUMM (1.4-6.5); ABSOLUTE LYMPH COUNT 0.9 /CUMM (1.2-3.4); BASOPHIL % 0.6 % (0.0-2.0); GRANULOCYTE % 75.4 % (42.2-75.2); HEMATOCRIT 36.7 % (42-52); MEAN CORPUSCULAR HGB 29.2 PG (27.0-31.0); MEAN CORPUSCULAR HGB CONC 33.6 G/DL (33.0-37.0); MEAN PLATELET VOLUME 8.2 FL (7.4-10.4); PLATELET COUNT 145 /CUMM (130-400); RBC DISTRIBUTION WIDTH 14.6 % (11.5-14.5); RED BLOOD CELL CT 4.22 /CUMM (4.70-6.10); WHITE BLOOD CELL COUNT 8.9 /CUMM (4.8-10.8)
--- NOTE | 2017-10-10 08:31 | PN- Housestaff ---
Subjective Follow-up For: #Left Tibia mildly depressed fracture #Hypertensive urgency #History of anxiety #History of depression #History of diabetes. Tele-Events Since Last Visit: Normal sinus rhythm, 8599, 0.080.1, no overnight events Subjective: Patient was seen and examined, continues to complain of left lower extremity pain blood pressure remains elevated at 150/78, will be n.p.o. at midnight for surgery tomorrow Review of Systems Constitutional: Reports: see HPI. Objective Last 24 Hrs of Vital Signs/I&O Vital Signs Date Time Temp Pulse Resp B/P B/P Pulse O2 O2 Flow FiO2 Mean Ox Delivery Rate 10/10 0908 88 150/78 10/10 0907 88 150/78 10/10 0651 98.1 91 20 150/78 94 Room Air 10/10 0305 98.5 90 20 148/78 95 Room Air 10/10 0002 98 180/80 10/09 2333 100.9 10/09 2300 100.9 100 19 176/80 94 10/09 1913 99.1 102 24 164/74 94 10/09 1440 99.9 106 20 180/90 96 Room Air 10/09 1317 80 188/80 Intake & Output 10/10 1600 10/10 0800 10/10 0000 Intake Total 350 120 Output Total 700 875 Balance -350 -755 Intake, Oral 350 120 Output, Urine 700 875 Physical Exam General Appearance: Alert, Oriented X3, Cooperative, No Acute Distress HEENT: Atraumatic, PERRLA, EOMI, Mucous Membr. moist/pink Cardiovascular: Normal S1, Normal S2 Lungs: Clear to Auscultation Abdomen: Normal Bowel Sounds, Soft, No Tenderness Extremities: No Clubbing, No Cyanosis, No Edema Assessment/Plan Assessment: Mr. Diane is a pleasant 62-year-old gentleman with past medical history of hypertension, anxiety and depression who was brought in by ambulance after he had a fall. Problem list #Left Tibia mildly depressed fracture #Hypertensive urgency #History of anxiety #History of depression #History of diabetes. Continue on telemetry service. Vital signs every 4 hours. Goal blood pressure not to decrease BP more than and 25% in 24 hours. Blood pressure is elevated likely due to pain. Orthopedic recommendation appreciated We will continue the patient on amlodipine 10 mg daily. If continues to be hypertensive will consider increasing the losartan dose to 100 mg daily Patient will be n.p.o. at midnight for surgery Start gentle IV fluid hydration at midnight Fingersticks 3 times a day at bedtime NovoLog sliding scale. Pain control with ibuprofen and Percocet. For breakthrough pain may use morphine. PT evaluation We will call the pharmacy to confirm with the medication list, patient is on Edarbyclor, which is AZILSARTAN /hydrochlorothiazide 40/12.5 pharmacy: Patient's pharmacy [facility] Address: [address] [place] [address], [place] [id number] T: [phone] Heart healthy diet DVT prophylaxis with Lovenox Patient is a full code. Problem List: 1. Tibial plateau fracture, left 2. Hypertensive urgency Pain Ratin Pain Location: N/A Pain Goal: Remain pain free Pain Plan: PATHWAY Tomorrow's Labs & Rationales: CBC BEP
--- NOTE | 2017-10-10 09:28 | PN- Orthopedic ---
Surgical Brief Attending Note Brief Attending Note: Patient seen this morning. Resting comfortably. Patient is cleared for surgery tomorrow patient will undergo open reduction internal fixation of a left tibial plateau fracture. The risks and benefits of the procedure were discussed the patient in detail. Consent was not signedPatient seen this morning. Resting comfortably. Patient is cleared for surgery tomorrow patient will undergo open reduction internal fixation of a left tibial plateau fracture. The risks and benefits of the procedure were discussed the patient detail. Consent was signed. On examination the left lower exam is neurovascular intact. He is moving his toes. There is no signs of impending compartment syndrome. On examination the left lower extremity neurovascular intact. He is moving his toes. There is no signs of impending compartment syndrome. Sensation light touch is grossly intact distally. Sensation light touch is grossly intact distally.. Patient will be made nothing by mouth past midnight. Continue to monitor hypertension. Plan for mid afternoon surgery. H Plan for mid afternoon surgery. Hypertension. Continue to monitor patient will be made n.p.o. past midnight.
--- NOTE | 2017-10-10 10:39 | PN- Att Addend ---
Attending Addendum Attending Brief Note Patient seen and examined, and said that he had an uncomfortable night secondary to pain in the room temperature was high. This morning he is feeling somewhat comfortable. Vital Signs Date Time Temp Pulse Resp B/P B/P Pulse O2 O2 Flow FiO2 Mean Ox Delivery Rate 10/10 0908 88 150/78 10/10 0907 88 150/78 10/10 0651 98.1 91 20 150/78 94 Room Air 10/10 0305 98.5 90 20 148/78 95 Room Air 10/10 0002 98 180/80 10/09 2333 100.9 10/09 2300 100.9 100 19 176/80 94 10/09 1913 99.1 102 24 164/74 94 10/09 1440 99.9 106 20 180/90 96 Room Air 10/09 1317 80 188/80 10/09 1200 106 188/80 10/09 1200 106 188/80 on exam; aox,3 nad. cv; s1, s2, rrr resp; clear abd; soft, nt, bs+ ext; no edema lle is wrapped in immobilizer. Laboratory Tests 10/10 0650 Chemistry Sodium (137 - 145 mmol/L) 139 Potassium (3.5 - 5.1 mmol/L) 3.3 L Chloride (98 - 107 mmol/L) 99 Carbon Dioxide (22 - 30 mmol/L) 30 Anion Gap (5 - 16) 9 BUN (9 - 20 mg/dL) 14 Creatinine (0.7 - 1.2 mg/dL) 0.8 Estimated GFR (>60 ml/min) > 60 BUN/Creatinine Ratio (7 - 25 %) 17.5 Hematology CBC w Diff NO MAN DIFF REQ WBC (4.8 - 10.8 /CUMM) 8.9 RBC (4.70 - 6.10 /CUMM) 4.22 L Hgb (14.0 - 18.0 G/DL) 12.3 L Hct (42 - 52 %) 36.7 L MCV (80.0 - 94.0 FL) 87.0 MCH (27.0 - 31.0 PG) 29.2 MCHC (33.0 - 37.0 G/DL) 33.6 RDW (11.5 - 14.5 %) 14.6 H Plt Count (130 - 400 /CUMM) 145 MPV (7.4 - 10.4 FL) 8.2 Gran % (42.2 - 75.2 %) 75.4 H Lymphocytes % (20.5 - 51.1 %) 9.6 L Monocytes % (1.7 - 9.3 %) 11.4 H Eosinophils % (0 - 5 %) 3.0 Basophils % (0.0 - 2.0 %) 0.6 Absolute Granulocytes (1.4 - 6.5 /CUMM) 6.7 H Absolute Lymphocytes (1.2 - 3.4 /CUMM) 0.9 L Absolute Monocytes (0.10 - 0.60 /CUMM) 1.0 H Absolute Eosinophils (0.0 - 0.7 /CUMM) 0.3 Absolute Basophils (0.0 - 0.2 /CUMM) 0 A/P: 62-year-old male originally from [facility] who is visiting here with past medical history significant for hypertension, anxiety, depression, borderline diabetes admitted with a mechanical fall and sustained Comminuted, mildly depressed fracture of the lateral aspect of the tibial plateau. Also had uncontrolled hypertension but BP seems to be better today. Patient currently on ARB, hydrate with high side and calcitonin ronak. Please call patient's pharmacy and confirm his home medication dose. As mentioned in the cardiology note, if blood pressure remains high then dose of losartan can be increased. Please replete potassium. No other acute events overnight on telemetry. Patient currently on morphine and oxycodone for pain control. Appreciate input from all the consultants. Currently patient plan for surgery tomorrow afternoon. Patient should be kept nothing by mouth after midnight and should be started on gentle IV hydration. Patient on Lovenox for DVT prophylaxis.
--- NOTE | 2017-10-10 11:20 | Event Note ---
Event Note Event Note: PER DR BENSON, PT WILL GO TO [place] TOMORROW FOR ORIF LEFT TIBIAL PLATEAU FRACTURE WILL MAKE NPO AFTER MIDNIGHT, MEDS WITH SIPS IN AM OK HYDRATE WITH IVF AWAITING MEDICAL/CARDIAC CLEARENCE
--- NOTE | 2017-10-10 11:56 | PN- Cardiology ---
Subjective Subjective: The patient continues to complain of left lower extremity pain. No chest pain. No shortness of breath. No palpitations. No diaphoresis. No nausea or vomiting. Blood pressure continues to be elevated Objective Vital Signs and I&Os Vital Signs Date Time Temp Pulse Resp B/P B/P Pulse O2 O2 Flow FiO2 Mean Ox Delivery Rate 10/10 0908 88 150/78 10/10 0907 88 150/78 10/10 0651 98.1 91 20 150/78 94 Room Air 10/10 0305 98.5 90 20 148/78 95 Room Air 10/10 0002 98 180/80 10/09 2333 100.9 10/09 2300 100.9 100 19 176/80 94 10/09 1913 99.1 102 24 164/74 94 10/09 1440 99.9 106 20 180/90 96 Room Air 10/09 1317 80 188/80 10/09 1200 106 188/80 10/09 1200 106 188/80 Intake & Output 10/10 1600 10/10 0800 10/10 0000 10/09 1600 10/09 0800 10/09 0000 Intake Total 350 120 614 207 3862 Output Total 986 454 8826 650 225 Balance -350 -755 -1230 -350 895 Intake, IV 20 1000 Intake, Oral 350 120 200 300 120 Output, Urine 704 192 5735 650 225 Patient 299 lb Weight Weight Bed scale Measurement Method Physical Exam: Gen: The patient is in no acute distress HEENT: Normal nose, ears, and oropharynx. Pupils equal bilaterally. Conjunctiva normal. Neck: Supple with no JVD, no masses, and no thyromegaly Lungs: Clear to auscultation with normal respiratory effort Heart: RRR, S1, S2, no murmurs. No peripheral edema, 2+ pulses in the lower extremities bilaterally Abdomen: Soft, nontender, no masses. No hepatomegaly. No splenomegaly Extremities: No clubbing or cyanosis. Normal muscle strength in the upper and lower extremities Skin: Normal skin turgor with no skin ulcers or lesions noted. Neuro: Cranial nerves intact. Sensation intact Current Medications: Current Medications Sig/Shan Start time Last Medication Dose Route Stop Time Status Admin Acetaminophen 650 MG ONCE ONE 10/09 2314 DC 10/09 PO 10/096 2333 Amlodipine Besylate 5 MG DAILY 10/10 09 AC 10/10 PO 0907 Amlodipine Besylate 5 MG ONCE ONE 10/09 2345 DC 10/10 PO 10/09 2346 0002 Amlodipine Besylate 10 MG DAILY 10/09 0900 DC 10/09 PO 0855 Docusate Sodium 100 MG DAILY 10/10 1024 AC 10/10 PO 1113 Enoxaparin Sodium 40 MG DAILY 10/08 1800 AC 10/10 SC 0908 Hydrochlorothiazide 12.5 MG ONCE ONE 10/09 1715 DC 10/09 PO 10/09 1716 1725 Hydrochlorothiazide 12.5 MG DAILY 10/09 1600 AC 10/10 PO 0906 Ibuprofen 600 MG .STK-MED ONE 10/09 1551 DC PO 10/09 1552 Ibuprofen 600 MG TID PRN 10/08 1745 AC 10/10 PO 1112 Insulin Aspart 0 TIDAC 10/09 1200 AC SC Losartan Potassium 50 MG ONCE ONE 10/09 1500 CAN PO 10/09 1501 Losartan Potassium 50 MG DAILY 10/09 1200 AC 10/10 PO 0908 Morphine Sulfate 2 MG Q6P PRN 10/08 1745 AC 10/10 IV 0306 Oxycodone/ 1 TAB Q6P PRN 10/08 1745 AC 10/10 Acetaminophen PO 0907 Potassium Chloride 40 MEQ ONCE ONE 10/10 1100 DC 10/10 PO 10/10 1101 1112 Senna/Docusate Sodium 2 TAB DAILY PRN 10/10 1030 AC 10/10 PO 1112 Results Last 48 Hrs of Labs/Mics: Laboratory Tests 10/10/17 0650: Anion Gap 9, Estimated GFR > 60, BUN/Creatinine Ratio 17.5, CBC w Diff NO MAN DIFF REQ, RBC 4.22 L, MCV 87.0, MCH 29.2, MCHC 33.6, RDW 14.6 H, MPV 8.2, Gran % 75.4 H, Lymphocytes % 9.6 L, Monocytes % 11.4 H, Eosinophils % 3.0, Basophils % 0.6, Absolute Granulocytes 6.7 H, Absolute Lymphocytes 0.9 L, Absolute Monocytes 1.0 H, Absolute Eosinophils 0.3, Absolute Basophils 0 10/08/17 1750: Urine Color YEL, Urine Clarity CLEAR, Urine pH 6.0, Ur Specific [place] 1.020, Urine Protein NEG, Urine Ketones NEG, Urine Nitrite NEG, Urine Bilirubin NEG, Urine Urobilinogen 0.2, Ur Leukocyte Esterase TRACE H, Ur Microscopic SEDIMENT EXAMINED, Urine RBC RARE, Urine WBC 3-5 H, Ur Epithelial Cells RARE, Hyaline Casts 1-3 H, Urine Mucus FEW, Urine Hemoglobin NEG, Urine Glucose 100 H 10/08/17 1157: Anion Gap 10, Estimated GFR > 60, BUN/Creatinine Ratio 26.3 H, Glucose 120 H, Calcium 9.8, Creatine Kinase 402 H, CBC w Diff NO MAN DIFF REQ, RBC 4.34 L, MCV 85.8, MCH 30.1, MCHC 35.1, RDW 14.5, MPV 7.5, Gran % 78.1 H, Lymphocytes % 8.9 L, Monocytes % 12.5 H, Eosinophils % 0.2, Basophils % 0.3, Absolute Granulocytes 8.4 H, Absolute Lymphocytes 1.0 L, Absolute Monocytes 1.3 H, Absolute Eosinophils 0, Absolute Basophils 0, Serum Alcohol < 10.0 Assessment/Plan Assessment/Plan Assessment: 1. Hypertension 2. Hyperlipidemia 3. Tibia fracture, planned for repair 4. Borderline prolonged QT interval Recommendations: * The patient is cleared from a cardiac standpoint for the planned surgery. * Please repeat EKG the borderline prolonged QT interval on the initial EKG * If blood pressure remains elevated, would increase losartan to 100 mg to Continue telemetry? Yes
[2017-10-10 14:26] VITALS: BP 168/70
[2017-10-10 19:47] VITALS: BP 180/80
[2017-10-10 22:50] VITALS: BP 170/76
[2017-10-11] VITALS (8 sets, daily range): BP systolic 156–190; BP diastolic 70–90
--- NOTE | 2017-10-11 07:02 | PN- Housestaff ---
Malgorzata LINDSAY,Millie 10/11/17 0702: Subjective Follow-up For: #Left Tibia mildly depressed fracture #Hypertensive urgency #History of anxiety #History of depression #History of diabetes. Complaints: no complaints Tele-Events Since Last Visit: Normal sinus rhythm heart rate 85 Subjective: Patient seen and examined at bedside. No overnight events. Patient is planned for ORIF today. Review of Systems Constitutional: Reports: no symptoms. Objective Last 24 Hrs of Vital Signs/I&O Vital Signs Date Time Temp Pulse Resp B/P B/P Pulse O2 O2 Flow FiO2 Mean Ox Delivery Rate 10/11 1201 99.4 93 18 186/80 94 Room Air 10/11 0932 80 160/80 10/11 0930 80 170/80 10/11 0649 98.4 86 20 190/80 96 Room Air 10/11 0639 96 190/80 10/11 0306 97.6 82 20 160/78 95 Room Air 10/11 0028 99.0 10/10 2250 98.7 94 22 170/76 95 10/10 2107 100 180/80 10/10 1958 100.8 10/10 1947 100.8 101 20 180/80 93 10/10 1723 100 168/70 10/10 1426 97.7 94 20 168/70 94 Room Air Intake & Output 10/11 1600 10/11 0800 10/11 0000 Intake Total 300 200 Output Total 400 300 Balance -100 -100 Intake, IV 300 Intake, Oral 200 Output, Urine 400 300 Patient 307 lb Weight Physical Exam General Appearance: Alert, Oriented X3, Cooperative, No Acute Distress Cardiovascular: Regular Rate, Normal S1, Normal S2 Lungs: Clear to Auscultation Abdomen: Soft, No Tenderness, No Hepatospenomegaly Neurological: Normal Speech, Normal Tone, Sensation Intact Current Medications: Current Medications Sig/Shan Start time Last Medication Dose Route Stop Time Status Admin Amlodipine Besylate 5 MG ONCE ONE 10/10 1700 DC 10/10 PO 10/10 1701 1723 Amlodipine Besylate 5 MG DAILY 10/10 0900 AC 10/11 PO 0932 Dextrose/Sodium 1,000 ML Q20H 10/11 0045 AC 10/11 Chloride IV 10/11 2044 0053 Docusate Sodium 100 MG DAILY 10/10 1024 AC 10/10 PO 1113 Enoxaparin Sodium 40 MG DAILY 10/08 1800 AC 10/10 SC 0908 Hydrochlorothiazide 12.5 MG DAILY 10/09 1600 DC 10/10 PO 0906 Ibuprofen 600 MG .STK-MED ONE 10/10 1956 DC PO 10/10 1957 Ibuprofen 600 MG TID PRN 10/08 1745 AC 10/10 PO 195 Insulin Aspart 0 TIDAC 10/09 1200 DC SC Insulin Human Regular 0 Q6 10/10 2359 10/11 SC 0638 Losartan Potassium 100 MG DAILY 10/11 0900 AC 10/11 PO 0639 Losartan Potassium 50 MG ONCE ONE 10/10 2100 DC 10/10 PO 10/10 2101 2107 Losartan Potassium 50 MG DAILY 10/09 1200 DC 10/10 PO 0908 Morphine Sulfate 2 MG Q6P PRN 10/08 1745 10/11 IV 0559 Oxycodone/ 1 TAB Q6P PRN 10/08 174 10/11 Acetaminophen PO 0751 Patient Medication 1 ED ONE ONE 10/11 1000 DC Teaching ED 10/11 1001 Senna/Docusate Sodium 2 TAB DAILY PRN 10/10 1030 AC 10/10 PO 1112 Last 24 Hrs of Lab/Germain Results Last 24 Hrs of Labs/Mics: Laboratory Tests 10/11/17 0658: Anion Gap 8, Estimated GFR > 60, BUN/Creatinine Ratio 23.8, CBC w Diff NO MAN DIFF REQ, RBC 4.28 L, MCV 87.9, MCH 29.8, MCHC 33.9, RDW 14.6 H, MPV 8.1, Gran % 76.0 H, Lymphocytes % 10.0 L, Monocytes % 10.1 H, Eosinophils % 3.4, Basophils % 0.5, Absolute Granulocytes 6.0, Absolute Lymphocytes 0.8 L, Absolute Monocytes 0.8 H, Absolute Eosinophils 0.3, Absolute Basophils 0 Assessment/Plan Assessment: Mr. Diane is a pleasant 62-year-old gentleman with past medical history of hypertension, anxiety and depression who was brought in by ambulance after he had a fall. Problem list #Left Tibia mildly depressed fracture #Hypertensive urgency #History of anxiety #History of depression #History of diabetes. * patient blood pressure is still high. Patient is on losartan 100 mg was given earlier today. * Wkvpupzo-Cqjl-Inth and NovoLog sliding scale insulin * Left tibia fracture-patient is going for ORIF today. * Anxiety and depression-stable patient is on Wellbutrin. * Patient was seen by cardiology who suggested to discontinue telemetry. Code-full code Diet-diabetic diet Problem List: 1. Tibial plateau fracture, left Pain Ratin Pain Location: none Pain Goal: Remain pain free Pain Plan: tylenol Tomorrow's Labs & Rationales: cbc,bep Merry Kohler 10/11/17 1154: Attending MD Review Statement Attending Statement Attending MD Statement: examined this patient, discuss w/resident/PA/JAIL OFFICER, agreed w/resident/PA/JAIL OFFICER, reviewed EMR data (avail), discussed with nursing, discussed with case mgmt Attending Assessment/Plan: Left- Comminuted, mildly depressed fracture of the lateral aspect of the tibial plateau- Pt seen by orthopedics and is planned for OR today. will f/u post operatively. Pt denies any chest pain or heart issues. Denies any sob. No sob with walking at baseline or with climbing one flight of stairs. HTN- cont to monitor bp closely. d/w pt the care plan. .
[2017-10-11 08:01] LABS: ABSOLUTE BASOPHIL COUNT 0 /CUMM (0.0-0.2); ABSOLUTE EOSINOPHIL COUNT 0.3 /CUMM (0.0-0.7); ABSOLUTE LYMPH COUNT 0.8 /CUMM (1.2-3.4); ABSOLUTE MONOCYTE COUNT 0.8 /CUMM (0.10-0.60); BASOPHIL % 0.5 % (0.0-2.0); EOSINOPHIL % 3.4 % (0-5); HEMATOCRIT 37.6 % (42-52); MEAN CORPUSCULAR HGB 29.8 PG (27.0-31.0); MEAN CORPUSCULAR HGB CONC 33.9 G/DL (33.0-37.0); MEAN CORPUSCULAR VOLUME 87.9 FL (80.0-94.0); MEAN PLATELET VOLUME 8.1 FL (7.4-10.4); PLATELET COUNT 155 /CUMM (130-400); RBC DISTRIBUTION WIDTH 14.6 % (11.5-14.5); RED BLOOD CELL CT 4.28 /CUMM (4.70-6.10); WHITE BLOOD CELL COUNT 7.9 /CUMM (4.8-10.8)
--- NOTE | 2017-10-11 10:15 | Patient Discharge Instructions ---
Discharge Instructions General Discharge Information You were seen/treated for: Tibial Fracture Hypertensive Urgency You had these procedures: Open reduction and internal fixation left lateral tibial plateau fracture Special Instructions: Please follow up with your orthopedic surgeon within 1-2 weeks of discharge. Please follow up with your sales special agent within 2 weeks of discharge. Diet Continue normal diet: Yes Activity Full Activity/No Limits: No Activity Self Limited: Yes (No weight bearing 6 to 8 weeks) Acute Coronary Syndrome Inclusion Criteria At DC or during hospital stay patient has or had the following: ACS DIAGNOSIS No Discharge Core Measures Meds if any: Prescribed or Continued at Discharge Meds if any: NOT Prescribed or Continued at Discharge Congestive Heart Failure Inclusion Criteria At DC or during hospital stay patient has or had the following: CHF DIAGNOSIS No Discharge Core Measures Meds if any: Prescribed or Continued at Discharge Meds if any: NOT Prescribed or Continued at Discharge Cerebrovascular accident Inclusion Criteria At DC or during hospital stay patient has or had the following: CVA/TIA Diagnosis No Discharge Core Measures Meds if any: Prescribed or Continued at Discharge Meds if any: NOT Prescribed or Continued at Discharge Venous thromboembolism Inclusion Criteria VTE Diagnosis No VTE Type NONE VTE Confirmed by (Test) NONE Discharge Core Measures - Per Current guidelines, there needs to be overlap - treatment for the first 5 days of Warfarin therapy. - If discharged on Warfarin prior to 5 days of - overlap therapy, the patient will need to be - assessed for post discharge needs including - *Post discharge parental anticoagulation - *Warfarin and/or parental anticoagulation education - *Follow up date to check INR post discharge At least 5 days overlap therapy as Inpatient No Meds if any: Prescribed or Continued at Discharge Note: Overlap Therapy is Warfarin and Anticoagulant Meds if any: NOT Prescribed or Continued at Discharge
--- NOTE | 2017-10-11 11:34 | PN- Cardiology ---
Subjective Subjective: The patient is awaiting surgery. No chest pain. No shortness of breath. No palpitations. No diaphoresis. Blood pressure remains elevated. Objective Vital Signs and I&Os Vital Signs Date Time Temp Pulse Resp B/P B/P Pulse O2 O2 Flow FiO2 Mean Ox Delivery Rate 10/11 0932 80 160/80 10/11 0930 80 170/80 10/11 0649 98.4 86 20 190/80 96 Room Air 10/11 0639 96 190/80 10/11 0306 97.6 82 20 160/78 95 Room Air 10/11 0028 99.0 10/10 2250 98.7 94 22 170/76 95 10/10 2107 100 180/80 10/10 1958 100.8 10/10 1947 100.8 101 20 180/80 93 10/10 1723 100 168/70 10/10 1426 97.7 94 20 168/70 94 Room Air Intake & Output 10/11 1600 10/11 0800 10/11 0000 10/10 1600 10/10 0800 10/10 0000 Intake Total 300 200 460 350 120 Output Total 400 300 250 700 875 Balance -100 -100 210 -350 -755 Intake, IV 300 10 Intake, Oral 200 450 350 120 Output, Urine 400 300 250 700 875 Patient 307 lb Weight Physical Exam: Gen: The patient is in no acute distress HEENT: Normal nose, ears, and oropharynx. Pupils equal bilaterally. Conjunctiva normal. Neck: Supple with no JVD, no masses, and no thyromegaly Lungs: Clear to auscultation with normal respiratory effort Heart: RRR, S1, S2, no murmurs. No peripheral edema, 2+ pulses in the lower extremities bilaterally Abdomen: Soft, nontender, no masses. No hepatomegaly. No splenomegaly Extremities: No clubbing or cyanosis. Normal muscle strength in the upper and lower extremities Skin: Normal skin turgor with no skin ulcers or lesions noted. Neuro: Cranial nerves intact. Sensation intact Current Medications: Current Medications Sig/Shan Start time Last Medication Dose Route Stop Time Status Admin Amlodipine Besylate 5 MG ONCE ONE 10/10 1700 DC 10/10 PO 10/10 1701 1723 Amlodipine Besylate 5 MG DAILY 10/10 0900 AC 10/11 PO 0932 Dextrose/Sodium 1,000 ML Q20H 10/11 0045 AC 10/11 Chloride IV 10/12 2043 0053 Docusate Sodium 100 MG DAILY 10/10 1024 AC 10/10 PO 1113 Enoxaparin Sodium 40 MG DAILY 10/08 1800 AC 10/10 SC 0908 Hydrochlorothiazide 12.5 MG DAILY 10/09 1600 DC 10/10 PO 0906 Ibuprofen 600 MG .STK-MED ONE 10/10 1956 DC PO 10/10 195 Ibuprofen 600 MG TID PRN 10/08 1745 AC 10/10 PO 195 Insulin Aspart 0 TIDAC 10/09 1200 DC SC Insulin Human Regular 0 Q6 10/10 2359 10/11 SC 0638 Losartan Potassium 100 MG DAILY 10/11 0900 AC 10/11 PO 0639 Losartan Potassium 50 MG ONCE ONE 10/10 2100 DC 10/10 PO 10/10 2100 210 Losartan Potassium 50 MG DAILY 10/09 1200 DC 10/10 PO 0908 Morphine Sulfate 2 MG Q6P PRN 10/08 1745 10/11 IV 0559 Oxycodone/ 1 TAB Q6P PRN 10/08 174 10/11 Acetaminophen PO 0751 Patient Medication 1 ED ONE ONE 10/11 1000 LA Teaching ED 10/11 1001 Senna/Docusate Sodium 2 TAB DAILY PRN 10/10 1030 AC 10/10 PO 1112 Results Last 48 Hrs of Labs/Mics: Laboratory Tests 10/11/17 0658: Anion Gap 8, Estimated GFR > 60, BUN/Creatinine Ratio 23.8, CBC w Diff NO MAN DIFF REQ, RBC 4.28 L, MCV 87.9, MCH 29.8, MCHC 33.9, RDW 14.6 H, MPV 8.1, Gran % 76.0 H, Lymphocytes % 10.0 L, Monocytes % 10.1 H, Eosinophils % 3.4, Basophils % 0.5, Absolute Granulocytes 6.0, Absolute Lymphocytes 0.8 L, Absolute Monocytes 0.8 H, Absolute Eosinophils 0.3, Absolute Basophils 0 10/10/17 0650: Anion Gap 9, Estimated GFR > 60, BUN/Creatinine Ratio 17.5, CBC w Diff NO MAN DIFF REQ, RBC 4.22 L, MCV 87.0, MCH 29.2, MCHC 33.6, RDW 14.6 H, MPV 8.2, Gran % 75.4 H, Lymphocytes % 9.6 L, Monocytes % 11.4 H, Eosinophils % 3.0, Basophils % 0.6, Absolute Granulocytes 6.7 H, Absolute Lymphocytes 0.9 L, Absolute Monocytes 1.0 H, Absolute Eosinophils 0.3, Absolute Basophils 0 Assessment/Plan Assessment/Plan Assessment: 1. Hypertension 2. Hyperlipidemia 3. Tibia fracture, planned for repair 4. Borderline prolonged QT interval Recommendations: * I agree with the increase in losartan dose to 100 mg daily. * Continue to monitor blood pressure * Surgery planned for today. Continue telemetry? No
[2017-10-11 13:16] LABS: PT 14.1 SEC (9.4-12.5)
--- NOTE | 2017-10-11 21:21 | PN- Orthopedic ---
Subjective Subjective: patient comfortable without complaints family present, all queations answered Review of Systems: no fevers or chills no calf pain or tenderness mild nausea Objective Vital Signs and I&Os Vital Signs Date Time Temp Pulse Resp B/P B/P Pulse O2 O2 Flow FiO2 Mean Ox Delivery Rate 10/11 2103 98.0 100 20 180/90 10/11 1452 99.4 96 18 156/74 93 Room Air 10/11 1242 89 172/74 10/11 1201 99.4 93 18 186/80 94 Room Air 10/11 0932 80 160/80 10/11 0930 80 170/80 10/11 0649 98.4 86 20 190/80 96 Room Air 10/11 0639 96 190/80 10/11 0306 97.6 82 20 160/78 95 Room Air 10/11 0028 99.0 10/10 2250 98.7 94 22 170/76 95 Intake & Output 10/11 1600 10/11 0800 10/11 0000 10/10 1600 10/10 0800 10/10 0000 Intake Total 350 300 200 460 350 120 Output Total 500 400 300 250 700 875 Balance -150 -100 -100 210 -350 -755 Intake, IV 350 300 10 Intake, Oral 0 200 450 350 120 Output, Urine 500 400 300 250 700 875 Patient 307 lb Weight alert and oriented, appears comfortable VSS afebrile chest -CTA symmetric heart -RRR without MRG abdomen -soft without distention left leg -calf soft, distal pulses intact no pain with EHL extension foot warm no drainage from dressing and knee immobilizer adjusted. Assessment/Plan Assessment/Plan postop check after ORIF lateral tibial plateau stick elevation of leg in in knee immobilzer while in bed PT -NWB left leg, ambulate with crutches or walker DVT proph -recommend ASA 325mg daily with ALPS Core Measures Venous Thromboembolism VTE Risk Factors Age>40 No Mechanical VTE Prophylaxis d/t Other No VTE Pharm Prophylaxis d/t Other
--- NOTE | 2017-10-11 23:48 | RADIOLOGY REPORT ---
EXAMINATION: INTRAOPERATIVE FLUOROSCOPIC GUIDANCE AND LEFT KNEE CLINICAL INFORMATION: Fracture. Internal fixation. COMPARISON: 10/08/2017. TECHNIQUE: Fluoroscopic time was utilized in the OR for Dr. Renae. Fluoroscopic images were obtained in AP, lateral, oblique projections. FINDINGS: Fluoroscopic guidance was provided during placement of a plate and screw device traversing the proximal left tibial fracture. On the final images, hardware is intact. Alignment is adequate. FLUOROSCOPY TIME: 72 seconds of fluoroscopic time was utilized for the entirety of this examination. IMPRESSION: Fluoroscopic guidance was provided during placement of a plate and screw device traversing the proximal left tibial fracture. On the final images, hardware is intact. Alignment is adequate.
[2017-10-12 00:03] VITALS: BP 150/78
[2017-10-12 01:50] VITALS: BP 148/60
[2017-10-12 05:34] VITALS: BP 148/78
--- NOTE | 2017-10-12 07:14 | PN- Housestaff ---
Marquez LINDSAY,[facility] 10/12/17 0713: Subjective Follow-up For: Left Tibia fracture s/p ORIF Hypertensive urgency Subjective: Patient seen and examined. States sleeping poorly last night due to significant amount of pain in his left lower extremity. Denies any headaches, chest pain, difficulty breathing or any other complaints at this time. Review of Systems Constitutional: Reports: no symptoms. Objective Last 24 Hrs of Vital Signs/I&O Vital Signs Date Time Temp Pulse Resp B/P B/P Pulse O2 O2 Flow FiO2 Mean Ox Delivery Rate 10/12 0848 95 140/78 10/12 0534 98.3 89 22 148/78 95 Room Air 10/12 0150 98.1 95 22 148/60 94 Room Air 10/12 0003 98.5 100 20 150/78 94 Room Air 10/11 2202 98.8 107 20 182/70 92 Room Air 10/11 2103 98.0 100 20 180/90 10/11 2000 98.0 100 20 180/90 97 Room Air 10/11 2000 98.0 100 20 180/90 97 Room Air 10/11 1452 99.4 96 18 156/74 93 Room Air 10/11 1242 89 172/74 10/11 1201 99.4 93 18 186/80 94 Room Air Intake & Output 10/12 1600 10/12 0800 10/12 0000 Intake Total 560 600 Output Total 150 950 530 Balance -150 -390 70 Intake, IV 100 Intake, Oral 460 600 Output, Urine 150 950 530 Patient 292 lb Weight Physical Exam General Appearance: Alert, Oriented X3, Cooperative, Mild Distress Skin: No Rashes, No Breakdown Skin Temp/Moisture Exam: Warm/Dry Sepsis Skin Exam (color): Normal for Ethnicity HEENT: Atraumatic Cardiovascular: Normal S1, Normal S2, No Murmurs Lungs: Normal Air Movement Abdomen: Soft, No Tenderness Neurological: Normal Speech Extremities: no edema on left leg. Right leg larger than left with edema of foot. surgical dressing intact Last 24 Hrs of Lab/Germain Results Last 24 Hrs of Labs/Mics: Laboratory Tests 10/12/17 0623: Anion Gap 9, Estimated GFR > 60, BUN/Creatinine Ratio 21.1 10/11/17 1232: PT 14.1 H, INR 1.29 H Assessment/Plan Assessment: Mr. Diane is a pleasant 62-year-old gentleman with past medical history of hypertension, anxiety and depression who was brought in by ambulance after he had a fall. Assessment: 1. Hypertensive Urgency - resolved 2. Left Tibial fracture s/p ORIF 3. History of diabetes 4. History of hypertension Plan: * Continue Amlodipine 5mg, Losartan 100mg and HCTZ 12.5mg for blood pressure control * Pain control with toradol, morphine and percocet as needed. * PT recommends discharge to [facility]. * Await placement. * Insulin SS with Accucheks * Diet: Diabetic * DVT Prophylaxis: Aspirin as per Surgical team due to bleeding concerns after his procedure * Code: Full Problem List: 1. Tibial plateau fracture, left Pain Ratin Pain Location: none Pain Goal: Remain pain free Pain Plan: none Tomorrow's Labs & Rationales: CHICO Au MD,Michelle 10/12/17 1120: Attending MD Review Statement Attending Statement Attending MD Statement: examined this patient, discuss w/resident/PA/STRINGED INSTRUMENT TUNER, agreed w/resident/PA/STRINGED INSTRUMENT TUNER, reviewed EMR data (avail), discussed with nursing, discussed with case mgmt, reviewed images, amended to note Attending Assessment/Plan: Patient seen and examined, feels ok. Still has pain in lle but pain meds helping. Has immobilizer on lle. Dressing on the surgical wound. Vital Signs Date Time Temp Pulse Resp B/P B/P Pulse O2 O2 Flow FiO2 Mean Ox Delivery Rate 10/12 0848 95 140/78 10/12 0534 98.3 89 22 148/78 95 Room Air 10/12 0150 98.1 95 22 148/60 94 Room Air 10/12 0003 98.5 100 20 150/78 94 Room Air 10/11 2202 98.8 107 20 182/70 92 Room Air 10/11 2103 98.0 100 20 180/90 10/12 1999 98.0 100 20 180/90 97 Room Air 10/12 1999 98.0 100 20 180/90 97 Room Air 10/11 1452 99.4 96 18 156/74 93 Room Air 10/11 1242 89 172/74 10/11 1201 99.4 93 18 186/80 94 Room Air on exam; aox3, nad. cv; s1, s2, rrr resp; clear abd; soft, nt, bs+ ext; + edema lle with immobilizer on. Laboratory Tests 10/12 10/11 0623 1232 Chemistry Sodium (137 - 145 mmol/L) 140 Potassium (3.5 - 5.1 mmol/L) 3.7 Chloride (98 - 107 mmol/L) 100 Carbon Dioxide (22 - 30 mmol/L) 31 H Anion Gap (5 - 16) 9 BUN (9 - 20 mg/dL) 19 Creatinine (0.7 - 1.2 mg/dL) 0.9 Estimated GFR (>60 ml/min) > 60 BUN/Creatinine Ratio (7 - 25 %) 21.1 Coagulation PT (9.4 - 12.5 SEC) 14.1 H INR (0.90 - 1.17) 1.29 H A/P: 62-year-old male originally from [place] who is visiting here with past medical history significant for hypertension, anxiety, depression, borderline diabetes admitted with a mechanical fall and sustained Comminuted, mildly depressed fracture of the lateral aspect of the tibial plateau. S/P surgery for the Tibial fx yesterday POD #1 today. Blood pressure controlled on current regimen. Reviewed orthopedic note and they recommend aspirin for DVT prophylaxis. Please confirm an orthopedic. I have stopped the Lovenox for now. Her extremities Doppler ultrasound was negative for DVT. Patient currently on Percocet and morphine for pain control. Likely will need to go to rehabilitation upon discharge. Continue all other current management and patient is working with physical therapy.
--- NOTE | 2017-10-12 07:37 | PN- Orthopedic ---
Subjective Subjective: PT IN BED, NON-WEIGHT BEARING ON LEFT LOWER EXTREMITY. DESCRIBES PAIN 10/10 VOIDING, PASSING GAS, NO BM. DENIES PARESTHESIAS DENEIS CP/SOB, BUNCH, FEVERS Objective Vital Signs and I&Os Vital Signs Date Time Temp Pulse Resp B/P B/P Pulse O2 O2 Flow FiO2 Mean Ox Delivery Rate 10/12 0534 98.3 89 22 148/78 95 Room Air 10/12 0150 98.1 95 22 148/60 94 Room Air 10/12 0003 98.5 100 20 150/78 94 Room Air 10/11 2202 98.8 107 20 182/70 92 Room Air 10/11 2103 98.0 100 20 180/90 10/12 1999 98.0 100 20 180/90 97 Room Air 10/12 1999 98.0 100 20 180/90 97 Room Air 10/11 1452 99.4 96 18 156/74 93 Room Air 10/11 1242 89 172/74 10/11 1201 99.4 93 18 186/80 94 Room Air 10/11 0932 80 160/80 10/11 0930 80 170/80 Intake & Output 10/12 0800 10/12 0000 10/11 1600 10/11 0800 10/11 0000 10/10 1600 Intake Total 560 600 350 300 200 460 Output Total 950 530 500 400 300 250 Balance -390 70 -150 -100 -100 210 Intake, IV 100 350 300 10 Intake, Oral 460 600 0 200 450 Output, Urine 950 530 500 400 300 250 Patient 292 lb 307 lb Weight Physical Exam: GEN- NAD RESP- CLEAR CARDIAC- RRR ABD- SOFT, NT EXT- LEFT IN KNEE IMMOBILIZER, DRESSING CLEAN AND DRY, DISTAL SENSORY SNF MOTOR FUNCTION INTACT. 2+ PT AND DP PULSE Assessment/Plan Assessment/Plan 62YO M SP LEFT TIBIAL PLATEAU FRACTURE LLE DUPLEX THIS MORNING FU AM LABS PAIN MANAGEMENT- ADDED TORADOL AND INCREASED PERCOCET FOR PAIN MANAGEMENT PT- NWB LLE DRESSING CHANGE POD2 DVT PPX- ASA DC PLANNING- LIKELY WILL NEED REHAB Core Measures Venous Thromboembolism VTE Risk Factors Age>40 No Mechanical VTE Prophylaxis d/t Other No VTE Pharm Prophylaxis d/t Other
--- NOTE | 2017-10-12 09:08 | Discharge Summary ---
Visit Information Visit Dates Admission Date: 10/08/17 Discharge Date: 10/14/2017 Hospital Course Course Attending Physician: Michelle Au MD Primary Care Physician: Unknown Consulting Request: Consulting Specialty: Orthopedics Hospital Course: This is a 62-year-old male originally from [place] who is visiting here with past medical history significant for hypertension, anxiety, depression, borderline diabetes admitted with a mechanical fall and sustained comminuted, mildly depressed fracture of the lateral aspect of the tibial plateau of LLE. Additionally on admission he was noted to have hypertensive urgency with BP up to 198/100. He was admitted for surgical fixation of LLE and mgmt of BP. He is S /P successful ORIF for the Tibial fx on 10/11/2017. His LE ext was negative for DVT. * NWB LLE 6-8 wks. F/u with ortho. * DVT PPX ASA * F/U with ortho outpt * Tylenol, Tramadol and percocet for pain mgmt * Continue HCTZ 25 mg daily * Continue Cozaar 100 mg daily * Continue Norvasc 10 mg daily * Continue bowel reg * Follow up with hot plate press operator regarding further BP mgmt Allergies: Coded Allergies: No Known Allergies (10/08/17) Significant Procedures: Admission vitals Temperature 98.5, pulse 86, respiratory rate 18, blood pressure 198/100----> 164 /71, 99 at room air. Admission labs WBC 10.7, hemoglobin 13.1, hematocrit 37.2, granulocytes 78.1, sodium 140, potassium 4.1, Glucose 120, calcium 9.8, creatinine kinase 402, serum alcohol less than 10 Urine-pending Imaging Knee x-ray Comminuted, mildly depressed fracture of the lateral aspect of the tibial plateau. Disposition Summary Disposition Principal Diagnosis: tib fracture Additional Diagnosis: htn Discharge Disposition: SNF Discharge Instructions General Discharge Information Code Status: Full Code Patient's Diet: CCD Patient's Activity: NWB LLE Follow-Up Instructions/Appts: SEE ABOVE Medications at Discharge Discharge Medications: Stop taking the following medications: Oxycodone HCl/Acetaminophen (Percocet 5-325 MG Tablet) 5 MG-325 MG TABLET ORAL TWICE DAILY Qty = 30 Continue taking these medications: Zolpidem Tartrate (Ambien) 5 MG TABLET 1 Tablet ORAL Every night Qty = 30 Comments: NOT TAKEN IN HOSPITAL Ibuprofen (Ibuprofen) 600 MG TABLET 1 Tablet ORAL EVERY SIX HOURS NEEDED as needed for PAIN Qty = 20 Instructions: with food Comments: NOT TAKEN IN HOSPITAL Metformin HCl (Metformin HCl) 500 MG TABLET 500 Milligram ORAL TWICE DAILY Qty = 60 Comments: NOT TAKEN IN HOSPITAL This prescription has been renewed Bupropion HCl (Wellbutrin XL) 300 MG TAB.ER.24H 1 Tablet ORAL DAILY Qty = 30 Comments: LAST TAKEN: 10/22/17 @ 9 AM This prescription has been renewed Alprazolam (Xanax) 0.5 MG TABLET 1 Tablet ORAL DAILY NEEDED as needed for Anxiety Qty = 7 Comments: LAST TAKEN: 10/22/17 @ 11 AM This prescription has been renewed Start taking the following new medications: Omeprazole (Omeprazole) 40 MG CAPSULE.DR 1 Capsule ORAL DAILY BEFORE BREAKFAST Qty = 30 No Refills Instructions: . Comments: LAST TAKEN: 10/22/17 @ 9 AM Sennosides/Docusate Sodium (Senna S Tablet) 8.6 MG-50 MG TABLET 1 Tablet ORAL DAILY as needed for Constipation Qty = 30 No Refills Instructions: . Acetaminophen (Tylenol Arthritis) 650 MG TABLET.ER 1 Tablet ORAL EVERY 8 HOURS NEEDED as needed for PAIN SCALE 1-3 (MILD) Qty = 30 No Refills Instructions: . Tramadol HCl (Tramadol HCl) 50 MG TABLET 1 Tablet ORAL EVERY 8 HOURS NEEDED as needed for PAIN SCALE 4-6 (MODERATE ) Qty = 10 No Refills Instructions: . Comments: LAST TAKEN: 10/24/17 @ 11 AM Oxycodone HCl/Acetaminophen (Percocet 7.5-325 MG Tablet) 7.5 MG-325 MG TABLET 1 Tablet ORAL EVERY 8 HOURS NEEDED as needed for PAIN SCALE 7-10 (SEVERE) Qty = 15 No Refills Instructions: . Comments: LAST TAKEN: 10/22/17 @ 1:30 PM Aspirin (Aspirin*) 325 MG TABLET 325 Milligram ORAL DAILY Qty = 40 No Refills Instructions: . Comments: LAST TAKEN: 10/22/17 @ 9 AM Losartan (Cozaar) 100 MG TABLET 100 Milligram ORAL DAILY Qty = 30 No Refills Instructions: . Comments: LAST TAKEN: 10/22/17 @ 9 AM Amlodipine Besylate (Amlodipine Besylate) 10 MG TABLET 1 Tablet ORAL DAILY Qty = 30 No Refills Instructions: . Comments: LAST TAKEN: 10/22/17 @ 9 AM Chlorthalidone (Chlorthalidone) 50 MG TABLET 1 Tablet ORAL DAILY Qty = 30 No Refills Comments: LAST TAKEN: 10/22/17 @ 9 AM Copies To: Roe LINDSAY,Michelle
--- NOTE | 2017-10-12 10:29 | ULTRASOUND REPORT ---
EXAMINATION: US TRIPLEX LOWER EXTREMITY, LEFT CLINICAL INFORMATION: Postoperative. Left lower extremity pain and swelling. COMPARISON: None TECHNIQUE: Color-flow triplex imaging with spectral analysis and compression Doppler were performed on the left lower extremity. FINDINGS: Respiratory variation, normal compression and augmented flow are noted throughout the left lower extremity. The visualized common femoral vein, superficial femoral vein, profunda femoral vein, popliteal vein and midcalf peroneal and posterior tibial venous segments show no evidence of deep venous thrombosis. Of note, the popliteal vein is partially compressed with surrounding swelling. There is a Schultz's cyst which measures 1.8 x 3 x 0.5 cm. IMPRESSION: No evidence of deep venous thrombosis involving the lower extremity. Small Schultz's cyst.
--- NOTE | 2017-10-12 11:45 | Operative Report ---
Operative/Inv Procedure Report Surgery Date: 10/11/17 Name of Procedure: Open reduction and internal fixation left lateral tibial plateau fracture Pre-Operative Diagnosis: Left lateral tibial plateau fracture Post-Operative Diagnosis: Same Estimated Blood Loss: less than 50ml Surgeon/Concrete Batch Plant Operator: getachew griffith Anesthesia: general endotracheal tube IV Fluids: See anesthesia record Implants: Donavan proximal lateral tibial plate AxSOS plating system Specimens: None Tourniquet: 127 minutes Complications: None Condition: Stable Operative Indication: Patient 62-year-old male status post mechanical fall down several stairs. He presented to [facility] emergency room with knee pain and swelling. X- rays revealed comminuted displaced lateral tibial plateau fracture. He was medically cleared and optimized and was cleared for fixation and surgery. Skilled set of hands was necessary provided by Dr. Mark Griffith provided with positioning the limb positioning and retraction and fracture reduction Of the case. Operative/Procedure Note Note: Once informed consent was obtained and the correct times is in front patient was brought to the operating room and placed on table in supine position. After initiation of general endotracheal anesthesia the patient's left leg had a thigh tourniquet placed was prepped and draped in usual sterile fashion. To begin the procedure and incisions made laterally centered over Arlen's tubercle and carried out proximally to the joint line. A hockey stick incision was then carried out. Sharp dissection was carried down through the skin and subcutaneous tissue and fat. The iliotibial band was incised. The tibialis anterior muscle belly was identified and Arlen's tubercle and elevated off the tubercle. The fascia of the tibialis anterior was also incised to allow for retraction. A sub-meniscal arthrotomy was performed in order to visualize the joint surface. This allowed for exposure of the lateral fracture site and major fracture fragment. However upon inspection of the joint there was significant comminution of the entire lateral tibial plateau. There were 4 articular cartilage pieces with subchondral bone and fragments. The fracture site was cleaned with irrigation. There was one centrally depressed fragment which despite extended efforts to get it reduced was not possible to reduce. It may have been attached to a ligamentous structure. At this point we then reduced the articular fragments as best as possible and confirmed the reduction of these fragments under C-arm fluoroscopy in the AP and lateral planes. Other than the one central posterior fragment the remainder of the joint was acceptable in terms reduction. A Donavan lateral tibial plateau plate was chosen from the set and placed on the lateral condyle of the tibia and lateral shaft. Plate position was confirmed in the AP and lateral planes. The plate was then secured to the tibia with K wires. To begin the fracture fixation portion of the procedure screws were placed underneath the articular surface of the reduced fragments and carried from lateral to medial across the tibia. Screw position and screw length were checked with fluoroscopy. 3 screws were placed into the subchondral portion of the tibia. The plate was then secured to the tibial shaft distally with appropriate cortical screw. Again fracture reduction although than the central posterior fracture fragment was adequate. The remainder of the screw holes were filled with appropriate screw lengths. Finally the kickstand screw for the Donavan plate was placed and confirmed position guzman with fluoroscopy. At this point the knee was taken through range of motion and the fracture fixation was stable. The tourniquet was released at 127 minutes and bleeding was stopped 4 to cautery. The wound was copiously irrigated with pulse lavage. The meniscus was repaired back to soft tissue with 2-0 FiberWire interrupted sutures. The IT band was repaired with a running 0 Vicryl interrupted suture. The subcutaneous tissues were closed with 0 Vicryl and 2-0 Vicryl interrupted sutures. The skin incision was closed with oren. A sterile dressing was applied with a knee immobilizer and the patient was awakened from stable condition.
--- NOTE | 2017-10-12 12:23 | PN- Cardiology ---
Subjective Subjective: The patient is feeling well status post surgery. Pain is improved. Note chest pain. No shortness of breath. No palpitations. Bood pressure is improving. Objective Vital Signs and I&Os Vital Signs Date Time Temp Pulse Resp B/P B/P Pulse O2 O2 Flow FiO2 Mean Ox Delivery Rate 10/12 0848 95 140/78 10/12 0534 98.3 89 22 148/78 95 Room Air 10/12 0150 98.1 95 22 148/60 94 Room Air 10/12 0003 98.5 100 20 150/78 94 Room Air 10/11 2202 98.8 107 20 182/70 92 Room Air 10/11 2103 98.0 100 20 180/90 10/12 1999 98.0 100 20 180/90 97 Room Air 10/12 1999 98.0 100 20 180/90 97 Room Air 10/11 1452 99.4 96 18 156/74 93 Room Air 10/11 1242 89 172/74 Intake & Output 10/12 1600 10/12 0800 10/12 0000 10/11 1600 10/11 0800 10/11 0000 Intake Total 560 600 350 300 200 Output Total 150 950 530 500 400 300 Balance -150 -390 70 -150 -100 -100 Intake, IV 100 350 300 Intake, Oral 460 600 0 200 Output, Urine 150 950 530 500 400 300 Patient 292 lb 307 lb Weight Physical Exam: Gen: The patient is in no acute distress HEENT: Normal nose, ears, and oropharynx. Pupils equal bilaterally. Conjunctiva normal. Neck: Supple with no JVD, no masses, and no thyromegaly Lungs: Clear to auscultation with normal respiratory effort Heart: RRR, S1, S2, no murmurs. No peripheral edema, 2+ pulses in the lower extremities bilaterally Abdomen: Soft, nontender, no masses. No hepatomegaly. No splenomegaly Extremities: No clubbing or cyanosis. Normal muscle strength in the upper and lower extremities Skin: Normal skin turgor with no skin ulcers or lesions noted. Neuro: Cranial nerves intact. Sensation intact Current Medications: Current Medications Sig/Shan Start time Last Medication Dose Route Stop Time Status Admin Acetaminophen 1,000 MG ONCE ONE 10/11 2345 DC 10/11 IV 10/11 2346 2356 Amlodipine Besylate 5 MG DAILY 10/10 899 AC 10/12 PO 0848 Aspirin 325 MG DAILY 10/12 899 AC 10/12 PO 0822 Dextrose/Sodium 1,000 ML Q20H 10/11 0045 DC 10/11 Chloride IV 10/11 2044 0053 Docusate Sodium 100 MG BID 10/12 0900 AC 10/12 PO 0822 Docusate Sodium 100 MG DAILY 10/10 1024 DC 10/10 PO 1113 Enoxaparin Sodium 40 MG DAILY 10/08 1800 DC 10/12 SC 0821 Fentanyl Citrate 250 MCG .STK-MED ONE 10/11 1428 DC IM 10/11 1429 Hydrochlorothiazide 12.5 MG DAILY 10/12 0900 DC PO Hydrochlorothiazide 12.5 MG DAILY 10/12 0900 AC 10/12 PO 0822 Hydrochlorothiazide 12.5 MG ONCE ONE 10/11 2345 DC 10/11 PO 10/11 2346 2356 Hydromorphone HCl 2 MG .STK-MED ONE 10/11 1822 DC IM 10/11 1823 Hydromorphone HCl 2 MG .STK-MED ONE 10/11 1814 DC IM 10/11 1815 Hydromorphone HCl 2 MG .STK-MED ONE 10/11 1428 DC IM 10/11 1429 Ibuprofen 600 MG TID PRN 10/08 1745 10/10 PO 1958 Insulin Aspart 0 TIDAC 10/12 0800 10/12 SC 0857 Insulin Human Regular 0 Q6 10/10 2359 DC 10/11 SC 0638 Ketorolac 30 MG ONCE ONE 10/12 0845 NE 10/12 Tromethamine IM 10/12 0846 0849 Ketorolac 15 MG Q8P PRN 10/12 0745 Tromethamine IV Losartan Potassium 100 MG DAILY 10/11 0900 AC 10/11 PO 2103 Midazolam HCl 4 MG .STK-MED ONE 10/11 1428 DC IM 10/11 1429 Morphine Sulfate 2 MG Q4-PRN PRN 10/11 2345 AC 10/12 IV 1045 Morphine Sulfate 2 MG Q6P PRN 10/08 1745 NE 10/11 IV 2004 Oxycodone/ 2 TAB Q4P PRN 10/12 0730 10/12 Acetaminophen PO 0831 Oxycodone/ 1 TAB Q6P PRN 10/08 1745 10/12 Acetaminophen PO 0546 Senna/Docusate Sodium 2 TAB DAILY PRN 10/10 1030 AC 10/10 PO 1112 Results Last 48 Hrs of Labs/Mics: Laboratory Tests 10/12/17 0623: Anion Gap 9, Estimated GFR > 60, BUN/Creatinine Ratio 21.1 10/11/17 1232: PT 14.1 H, INR 1.29 H 10/11/17 0658: Anion Gap 8, Estimated GFR > 60, BUN/Creatinine Ratio 23.8, CBC w Diff NO MAN DIFF REQ, RBC 4.28 L, MCV 87.9, MCH 29.8, MCHC 33.9, RDW 14.6 H, MPV 8.1, Gran % 76.0 H, Lymphocytes % 10.0 L, Monocytes % 10.1 H, Eosinophils % 3.4, Basophils % 0.5, Absolute Granulocytes 6.0, Absolute Lymphocytes 0.8 L, Absolute Monocytes 0.8 H, Absolute Eosinophils 0.3, Absolute Basophils 0 Assessment/Plan Assessment/Plan Assessment: 1. Hypertension, now under control 2. Hyperlipidemia 3. Tibia fracture, status post surgery 4. Borderline prolonged QT interval Recommendations: * Continue current medications. * Follow up in the office 2 weeks after discharge Continue telemetry? No
[2017-10-12] MEDS ORDERED: COZAAR100 M1 PO (13:47)
[2017-10-12] MEDS ORDERED: AMLODIPINE BESYL5 M1 PO (13:47)
[2017-10-12] MEDS ORDERED: ASPIRIN325 M2 PO (13:51)
[2017-10-12] MEDS ORDERED: TRAMADOL HCL50 M1 PO (13:54)
[2017-10-12] MEDS ORDERED: PERCOCET 7.5-31 EACH PO (13:54)
[2017-10-12] MEDS ORDERED: TYLENOL ARTHRI650 M1 PO (13:54)
[2017-10-12] MEDS ORDERED: HYDROCHLOROTH12.5 M3 PO (13:54)
[2017-10-12 14:10] VITALS: BP 142/70
[2017-10-12] MEDS ORDERED: XANAX0.5 M1 PO (14:19)
--- NOTE | 2017-10-12 15:53 | ECHOCARDIOGRAM REPORT ---
MELISSA MORALES Age: 62 : 1955 Gender: M Exam Date: 10/09/2017 11:33 Exam Location: 1 [address] Ht (in): 72 Wt (lb): 299 BSA: 2.68 BP: 168 / 90 Ordering Physician: Yulisa Skinner MD Referring Physician: Yulisa Skinner MD Technologist: Tasneem Brooek [facility] Room Number: 180-02 Indications: Rhythm: Sinus Technical Quality: Technically difficult study FINDINGS Left Ventricle Normal size left ventricle. Mild concentric left ventricular hypertrophy. Normal left ventricular ejection fraction visually estimated at 55%. No obvious regional wall motion abnormalities. Right Ventricle Normal right ventricular size and function. Right Atrium Normal right atrial size. Left Atrium Normal left atrial size. Mitral Valve Mild mitral annular calcification. Mitral valve thickened. Trace mitral regurgitation. Aortic Valve Diffuse thickening (sclerosis) of the aortic valve cusps without reduced excursion. No aortic stenosis. No aortic regurgitation. Tricuspid Valve Tricuspid valve not well visualized, grossly normal. Trace tricuspid regurgitation. Pulmonic Valve Pulmonic valve not well visualized, grossly normal. Pericardium Normal pericardium. Great Vessels Normal size aortic root. CONCLUSIONS Normal size left ventricle. Mild concentric left ventricular hypertrophy. Normal left ventricular ejection fraction visually estimated at 55%. Trace mitral regurgitation. Trace tricuspid regurgitation. Dmitriy Montes M.D. (Electronically Signed) Final Date: 10 October 2017 10:00 Amended: 12 October 2017 11:36 MEASUREMENTS (Male / Female) Normal Values 2D ECHO LV Diastolic Diameter PLAX 4.0 cm 4.2 - 5.9 / 3.9 - 5.3 cm LV Systolic Diameter PLAX 2.9 cm 2.1 - 4.0 cm LV Fractional Shortening PLAX 27.5 % 25 - 46 % LV Ejection Fraction 2D Teich 54.0 % IVS Diastolic Thickness 1.2 cm LVPW Diastolic Thickness 1.4 cm LV Relative Wall Thickness 0.7 LVOT Diameter 2.0 cm Aortic Root Diameter 3.7 cm LA Systolic Diameter LX 3.3 cm 3.0 - 4.0 / 2.7 - 3.8 cm LA Volume 90.0 cm 18 - 58 / 22 - 52 cm DOPPLER AV Peak Velocity 140.0 cm/s AV Peak Gradient 7.8 mmHg LVOT Peak Velocity 126.0 cm/s LVOT Peak Gradient 6.4 mmHg AV Area Cont Eq pk 2.8 cm Mitral E Point Velocity 87.9 cm/s Mitral A Point Velocity 102.0 cm/s Mitral E to A Ratio 0.9 MV Deceleration Time 156.0 ms PV Peak Velocity 148.0 cm/s PV Peak Gradient 8.8 mmHg LV E' Lateral Velocity 11.1 cm/s Mitral E to LV E' Lateral Ratio 7.9 LV E' Septal Velocity 10.3 cm/s Mitral E to LV E' Septal Ratio 8.5
[2017-10-12 22:21] VITALS: BP 165/80
[2017-10-13 01:35] VITALS: BP 178/86
[2017-10-13 06:24] VITALS: BP 158/89
--- NOTE | 2017-10-13 07:05 | PN- Housestaff ---
Marquez LINDSAY,[facility] 10/13/17 0705: Subjective Follow-up For: Hypertensive Urgency Left Tibial Fracture s/p ORIF Subjective: Patient seen and examined. Stated he had some night sweats last night, spiked a fever as informed by the nurses. Still complains of sharp pain in his left knee around 09/26. Review of Systems Constitutional: Reports: chills, fever. Cardiovascular: Denies: chest pain. Respiratory: Denies: short of breath. Gastrointestinal: Denies: abdominal pain. Musculoskeletal: Reports: joint pain. Objective Last 24 Hrs of Vital Signs/I&O Vital Signs Date Time Temp Pulse Resp B/P B/P Pulse O2 O2 Flow FiO2 Mean Ox Delivery Rate 10/13 0624 98.0 84 22 158/89 96 Room Air 10/13 0320 98.6 10/13 0301 98.2 10/13 0202 101.2 10/13 0202 80 20 178/80 10/13 0135 101.1 98 22 178/86 93 Room Air 10/12 2221 98.8 99 18 165/80 93 10/12 1410 98.0 103 18 142/70 96 Room Air 10/12 1323 Room Air Room Air 10/12 0848 95 140/78 Intake & Output 10/13 1600 10/13 0800 10/13 0000 Intake Total 360 60.5 Output Total 1150 Balance -790 60.5 Intake, IV 10.5 Intake, Oral 360 50 Output, Urine 1150 Patient 290 lb Weight Physical Exam General Appearance: Alert, Oriented X3, Cooperative, Mild Distress Skin: No Rashes, No Breakdown Skin Temp/Moisture Exam: Warm/Dry Sepsis Skin Exam (color): Normal for Ethnicity HEENT: Atraumatic Cardiovascular: Normal S1, Normal S2, No Murmurs Lungs: Clear to Auscultation, Normal Air Movement Abdomen: Soft, No Tenderness Neurological: Normal Speech Extremities: left lower extremity edema 2+ up to the mclean no edema of right leg /foot, tenderness to palpation of left leg Current Medications: Current Medications Sig/Shan Start time Last Medication Dose Route Stop Time Status Admin Alprazolam 0.5 MG DAILY NEEDED PRN 10/12 1630 AC 10/12 PO 10/19 1629 1656 Amlodipine Besylate 5 MG ONCE ONE 10/13 0200 DC 10/13 PO 10/13 0201 0202 Amlodipine Besylate 5 MG DAILY 10/10 0900 AC 10/12 PO 0848 Aspirin 325 MG DAILY 10/12 0900 AC 10/12 PO 0822 Docusate Sodium 100 MG BID 10/12 0900 AC 10/12 PO 2004 Enoxaparin Sodium 40 MG DAILY 10/08 1800 DC 10/12 SC 0821 Hydrochlorothiazide 12.5 MG DAILY 10/12 0900 AC 10/12 PO 0822 Ibuprofen 600 MG TID PRN 10/08 1745 AC 10/13 PO 0202 Insulin Aspart 0 TIDAC 10/12 0800 AC 10/12 SC 1647 Ketorolac 30 MG ONCE ONE 10/12 0845 DC 10/12 Tromethamine IM 10/12 0846 0849 Ketorolac 15 MG Q8P PRN 10/12 0745 AC 10/13 Tromethamine IV 0600 Losartan Potassium 100 MG DAILY 10/11 0900 AC 10/11 PO 2103 Morphine Sulfate 2 MG Q4-PRN PRN 10/11 2345 AC 10/12 IV 2004 Oxycodone/ 2 TAB Q4P PRN 10/12 0730 AC 10/13 Acetaminophen PO 0206 Oxycodone/ 1 TAB Q6P PRN 10/08 1745 10/12 Acetaminophen PO 0546 Patient Medication 1 ED ONE ONE 10/12 1530 DC 10/12 Teaching ED 10/12 1531 1659 Senna/Docusate Sodium 2 TAB DAILY PRN 10/10 1030 AC 10/10 PO 1112 Last 24 Hrs of Lab/Germain Results Last 24 Hrs of Labs/Mics: Laboratory Tests 10/13/17 0625: CBC w Diff Pending, WBC Pending, RBC Pending, Hgb Pending, Hct Pending, MCV Pending, MCH Pending, MCHC Pending, RDW Pending, Plt Count Pending, MPV Pending Microbiology 10/13 0500 URINE ROUT: Urine Culture - RECD 10/13 0240 BLOOD: Blood Culture - RECD 10/13 0220 BLOOD: Blood Culture - RECD Assessment/Plan Assessment: Mr. Diane is a pleasant 62-year-old gentleman with past medical history of hypertension, anxiety and depression who was brought in by ambulance after he had a fall. Assessment: 1. Hypertensive Urgency - resolved 2. Left Tibial fracture s/p ORIF 3. History of diabetes 4. History of hypertension Plan: * Continue Amlodipine 5mg, Losartan 100mg and HCTZ 12.5mg for blood pressure control. * Will obtain his medication list from his pharmacy in [place]. * He spiked a fever overnight. * Blood and urine cultures were obtained which is pending. * CXR to r/o pnemonia. * Pain control with Motrin, morphine and percocet as needed. * PT recommends discharge to STR. * However, patient will likely go home with physical therapy as his insurance does not cover STR. * Insulin SS with Accucheks * Diet: Diabetic * DVT Prophylaxis: Aspirin and ALPS * Code: Full Problem List: 1. Tibial plateau fracture, left Pain Ratin Pain Location: none Pain Goal: Remain pain free Pain Plan: none Tomorrow's Labs & Rationales: CHICO Au MD,Michelle 10/13/17 1123: Attending MD Review Statement Attending Statement Attending MD Statement: examined this patient, discuss w/resident/PA/ADMISSIONS SPECIALIST, agreed w/resident/PA/ADMISSIONS SPECIALIST, reviewed EMR data (avail), discussed with nursing, discussed with case mgmt, reviewed images, amended to note Attending Assessment/Plan: Patient seen and examined, had a fever spike last night. This morning he is afebrile. Denies any urinary complaints. Denies any cough or any shortness of breath. Vital Signs Date Time Temp Pulse Resp B/P B/P Pulse O2 O2 Flow FiO2 Mean Ox Delivery Rate 10/13 0836 90 180/80 10/13 0624 98.0 84 22 158/89 96 Room Air 10/13 0320 98.6 10/13 0301 98.2 10/13 0202 101.2 10/13 0202 80 20 178/80 10/13 0135 101.1 98 22 178/86 93 Room Air 10/12 2221 98.8 99 18 165/80 93 10/12 1410 98.0 103 18 142/70 96 Room Air 10/12 1323 Room Air Room Air on exam; aox3, nad. cv; s1, s2, rrr resp; clear abd; soft, nt, bs+ ext; + edema lle with immobilizer on. Laboratory Tests 10/13 624 Hematology CBC w Diff NO MAN DIFF REQ WBC (4.8 - 10.8 /CUMM) 8.1 RBC (4.70 - 6.10 /CUMM) 3.76 L Hgb (14.0 - 18.0 G/DL) 11.1 L Hct (42 - 52 %) 33.1 L MCV (80.0 - 94.0 FL) 88.1 MCH (27.0 - 31.0 PG) 29.6 MCHC (33.0 - 37.0 G/DL) 33.7 RDW (11.5 - 14.5 %) 14.3 Plt Count (130 - 400 /CUMM) 166 MPV (7.4 - 10.4 FL) 8.0 Gran % (42.2 - 75.2 %) 68.0 Lymphocytes % (20.5 - 51.1 %) 13.1 L Monocytes % (1.7 - 9.3 %) 15.2 H Eosinophils % (0 - 5 %) 3.4 Basophils % (0.0 - 2.0 %) 0.3 Absolute Granulocytes (1.4 - 6.5 /CUMM) 5.5 Absolute Lymphocytes (1.2 - 3.4 /CUMM) 1.1 L Absolute Monocytes (0.10 - 0.60 /CUMM) 1.2 H Absolute Eosinophils (0.0 - 0.7 /CUMM) 0.3 Absolute Basophils (0.0 - 0.2 /CUMM) 0 A/P; 62-year-old male originally from [place] who is visiting here with past medical history significant for hypertension, anxiety, depression, borderline diabetes admitted with a mechanical fall and sustained Comminuted, mildly depressed fracture of the lateral aspect of the tibial plateau. S/P surgery for the Tibial fx yesterday POD #2 today. Fever spike this morning. Will rule out any infectious cause. Will check urinalysis, urine culture, blood culture and chest x-ray. The baby count remained stable. Blood pressure uncontrolled therefore patient was given extra dose of amlodipine. Please confirm his home medication dosage and likely can switch his hydrochlorothiazide to chlorthalidone which he takes at home. Postop care per orthopedic. If patient remains afebrile and infection workup negative then likely can be discharged home with services tomorrow. Unfortunately his insurance does not give inpatient coverage for him to go to rehabilitation as reported by Case management.
[2017-10-13 08:01] LABS: ABSOLUTE BASOPHIL COUNT 0 /CUMM (0.0-0.2); ABSOLUTE EOSINOPHIL COUNT 0.3 /CUMM (0.0-0.7); ABSOLUTE GRANULOCYTE CT 5.5 /CUMM (1.4-6.5); ABSOLUTE LYMPH COUNT 1.1 /CUMM (1.2-3.4); ABSOLUTE MONOCYTE COUNT 1.2 /CUMM (0.10-0.60); BASOPHIL % 0.3 % (0.0-2.0); EOSINOPHIL % 3.4 % (0-5); HEMATOCRIT 33.1 % (42-52); MEAN CORPUSCULAR HGB 29.6 PG (27.0-31.0); MEAN CORPUSCULAR HGB CONC 33.7 G/DL (33.0-37.0); MEAN CORPUSCULAR VOLUME 88.1 FL (80.0-94.0); PLATELET COUNT 166 /CUMM (130-400); RBC DISTRIBUTION WIDTH 14.3 % (11.5-14.5); RED BLOOD CELL CT 3.76 /CUMM (4.70-6.10); WHITE BLOOD CELL COUNT 8.1 /CUMM (4.8-10.8)
--- NOTE | 2017-10-13 14:08 | RADIOLOGY REPORT ---
EXAMINATION: XR PORTABLE CHEST CLINICAL INFORMATION: Fever overnight. Postoperative. Evaluate for pneumonia or atelectasis. COMPARISON: None TECHNIQUE: Portable frontal view of the chest was obtained. FINDINGS: The lungs are well-inflated and clear. Trachea is midline in position. No evidence of interstitial disease, focal consolidation, mass, pneumothorax or pleural effusion. The cardiomediastinal silhouette and pulmonary eileen have normal size and contour. No hilar lymphadenopathy. There is atherosclerotic calcification of the aortic arch. The visualized bones are intact. The examined upper abdomen is unremarkable. IMPRESSION: Lungs are well expanded and clear. No pneumonia.
--- NOTE | 2017-10-13 14:23 | PN- Orthopedic ---
Surgical Brief Attending Note Brief Attending Note: patient seen postop day #2 status post open reduction internal fixation of left tibial plateau fracture. Patient resting comfortably in the chair however any sorts of physical therapy or movement does cause an increase in pain in the left knee. Overall he slowly improving. Of note there was a fever last night which defervesced this morning. Patient was encouraged to use incentive spirometer. Examination left knee reveals no signs of compartment syndrome. Patient is grossly neurovascularly intact distally. Assessment status post open reduction internal fixation left tibial plateau fracture. Plan: Continue with physical therapy mobilization. Patient to remain nonweightbearing on the left lower extremity for 6-8 weeks. Patient may begin passive and active range of motion knee with physical therapy.
[2017-10-13 15:06] VITALS: BP 154/76
--- NOTE | 2017-10-13 15:12 | PN- Housestaff ---
Subjective Follow-up For: #Left Tibia mildly depressed fracture #Hypertensive urgency #History of anxiety #History of depression #History of diabetes. Tele-Events Since Last Visit: a-fib around 0330 lastted for 3 minutes, VSS, patient was sleeping at the momment Subjective: - No overnight events. Patient had no specific complaint, breathing comfortably under 2LNC. - Patient denied fever/SOB/CP/palpitation/Ab pain/Leg swelling currently. - Patient was continued on prescribed diet regimen without specific intolerance/ request. - Patient denied any urinary or bowel movement discomforts. - Patient had no other specific complaint. Review of Systems Constitutional: Reports: see HPI. Objective Last 24 Hrs of Vital Signs/I&O Vital Signs Date Time Temp Pulse Resp B/P B/P Pulse O2 O2 Flow FiO2 Mean Ox Delivery Rate 10/13 0836 90 180/80 10/13 0624 98.0 84 22 158/89 96 Room Air 10/13 0320 98.6 10/13 0301 98.2 10/13 0202 101.2 10/13 0202 80 20 178/80 10/13 0135 101.1 98 22 178/86 93 Room Air 10/12 2221 98.8 99 18 165/80 93 Intake & Output 10/13 1600 10/13 0800 10/13 0000 Intake Total 360 60.5 Output Total 900 1150 Balance -900 -790 60.5 Intake, IV 10.5 Intake, Oral 360 50 Output, Urine 900 1150 Patient 131.655 kg Weight Physical Exam General Appearance: Oriented X3, Cooperative Assessment/Plan Problem List: 1. Hypertensive urgency Pain Ratin Pain Location: see AP Pain Goal: Remain pain free Pain Plan: see ap Tomorrow's Labs & Rationales: [id number]
--- NOTE | 2017-10-13 15:23 | Discharge Summary ---
Visit Information Visit Dates Admission Date: 10/08/17 Discharge Date: 10/22/17 Hospital Course Course Attending Physician: Roe LINDSAY,Michelle Asher MD, Tremaine Primary Care Physician: Unknown Hospital Course: This is a 62-year-old gentleman with a past medical history of hypertension hyperlipidemia anxiety depression. Patient is from [place] and is he is visiting his fiance here in [place]. Patient had suffered a mechanical fall from the third stair at his fiance's home, patient had been drinking wine earlier. Patient denies loss of consciousness or striking his head. Vitals on admission; temperature 98.5, pulse 86, respiratory rate 18, blood pressure 198/100 which came down to 164/71, oxygen saturation 99% at room air. Admission labs; White blood cell template white blood cell count 10.7, hemoglobin 13.1, hematocrit 37.2, sodium 140, potassium 4.1, serum alcohol less than 10, creatinine kinase 402. Imaging of L. knee x-ray in ED comminuted mildly depressed fracture of the lateral lateral aspect of the tibial plateau. Patient was admitted to general floor and was treated for; 1 L. tibial fracture. Patient was seen by orthopedics he was scheduled to undergo open reduction internal fixation of the left tibial plateau fracture on October 11, [address] Henry and Dr. Solano. After successful surgery patient was placed on a knee immobilizer, was placed on DVT prophylaxis with aspirin 325 mg daily, patient was made non-weight bearing on his left leg for 6-8 weeks. 2 hypertensive urgency. Initial blood pressure on presentation was 198/100, patient was on Edarbyclor at home, which is a combination pill of as a losartan medoxomil and chlorthalidone, dose unknown. In the emergency department patient was started on losartan, hydrochlorothiazide, amlodipine. The patient's blood pressure was in the 160s medication was changed hydrochlorothiazide was removed and chlorthalidone was added. By discharge patient was in the 130s systolic and 70s -80s diastolic. Patient will be discharged home on chlorthalidone 50 mg, amlodipine 10 mg, and losartan 100 mg. 3. Diabetes type 2 Home medications were held, fingerstick glucose was monitored every day and treated with sliding scale insulin. 4. GERD Patient was treated with omeprazole 40 mg twice daily, upon discharge patient is to continue home dose of 40 mg daily. Allergies: Coded Allergies: No Known Allergies (10/08/17) Significant Procedures: Operative/Inv Procedure Report Surgery Date: 10/11/17 Name of Procedure: Open reduction and internal fixation left lateral tibial plateau fracture Pre-Operative Diagnosis: Left lateral tibial plateau fracture Post-Operative Diagnosis: Same Estimated Blood Loss: less than 50ml Surgeon/Case Management Rn: getachew griffith Anesthesia: general endotracheal tube IV Fluids: See anesthesia record Implants: Donavan proximal lateral tibial plate AxSOS plating system Specimens: None Tourniquet: 127 minutes Complications: None Condition: Stable Operative Indication: Patient 62-year-old male status post mechanical fall down several stairs. He presented to [facility] emergency room with knee pain and swelling. X- rays revealed comminuted displaced lateral tibial plateau fracture. He was medically cleared and optimized and was cleared for fixation and surgery. Skilled set of hands was necessary provided by Dr. Mark Griffith provided with positioning the limb positioning and retraction and fracture reduction Of the case. Operative/Procedure Note Note: Once informed consent was obtained and the correct times is in front patient was brought to the operating room and placed on table in supine position. After initiation of general endotracheal anesthesia the patient's left leg had a thigh tourniquet placed was prepped and draped in usual sterile fashion. To begin the procedure and incisions made laterally centered over Arlen's tubercle and carried out proximally to the joint line. A hockey stick incision was then carried out. Sharp dissection was carried down through the skin and subcutaneous tissue and fat. The iliotibial band was incised. The tibialis anterior muscle belly was identified and Arlen's tubercle and elevated off the tubercle. The fascia of the tibialis anterior was also incised to allow for retraction. A sub-meniscal arthrotomy was performed in order to visualize the joint surface. This allowed for exposure of the lateral fracture site and major fracture fragment. However upon inspection of the joint there was significant comminution of the entire lateral tibial plateau. There were 4 articular cartilage pieces with subchondral bone and fragments. The fracture site was cleaned with irrigation. There was one centrally depressed fragment which despite extended efforts to get it reduced was not possible to reduce. It may have been attached to a ligamentous structure. At this point we then reduced the articular fragments as best as possible and confirmed the reduction of these fragments under C-arm fluoroscopy in the AP and lateral planes. Other than the one central posterior fragment the remainder of the joint was acceptable in terms reduction. A Donavan lateral tibial plateau plate was chosen from the set and placed on the lateral condyle of the tibia and lateral shaft. Plate position was confirmed in the AP and lateral planes. The plate was then secured to the tibia with K wires. To begin the fracture fixation portion of the procedure screws were placed underneath the articular surface of the reduced fragments and carried from lateral to medial across the tibia. Screw position and screw length were checked with fluoroscopy. 3 screws were placed into the subchondral portion of the tibia. The plate was then secured to the tibial shaft distally with appropriate cortical screw. Again fracture reduction although than the central posterior fracture fragment was adequate. The remainder of the screw holes were filled with appropriate screw lengths. Finally the kickstand screw for the Shandon plate was placed and confirmed position guzman with fluoroscopy. At this point the knee was taken through range of motion and the fracture fixation was stable. The tourniquet was released at 127 minutes and bleeding was stopped 4 to cautery. The wound was copiously irrigated with pulse lavage. The meniscus was repaired back to soft tissue with 2-0 FiberWire interrupted sutures. The IT band was repaired with a running 0 Vicryl interrupted suture. The subcutaneous tissues were closed with 0 Vicryl and 2-0 Vicryl interrupted sutures. The skin incision was closed with oren. A sterile dressing was applied with a knee immobilizer and the patient was awakened from stable condition. Pertinent Lab Results: SERVICE DATE: 10/08/17 EXAM TYPE: RAD - XRY-KNEE COMPLETE LEFT; [id number], LEFT EXAMINATION: XR KNEE, LEFT XR TIBIA AND FIBULA, LEFT CLINICAL INFORMATION: Status post fall. Medial left knee pain/tenderness. COMPARISON: None TECHNIQUE: AP and lateral views of the left tibia and fibula were obtained. FINDINGS: There is a comminuted, mildly depressed tibial plateau fracture along the lateral aspect of the proximal tibia. No other tibial, femoral, or fibular fracture demonstrated. The ankle mortise appears congruent. Plantar calcaneal spurring. Distal Achilles enthesopathy. Age-indeterminate focal mineralization along the dorsal aspect of the navicular, favor nonacute. Moderate knee joint effusion. IMPRESSION: Comminuted, mildly depressed fracture of the lateral aspect of the tibial plateau. EXAM TYPE: CARD - ECHOCARDIOGRAM MELISSA MORALES Age: 62 : 1955 Gender: M Exam Date: 10/09/2017 11:33 Exam Location: [address] [place] [address] Ht (in): 72 Wt (lb): 299 BSA: 2.68 BP: 168 / 90 Ordering Physician: Yulisa Skinner MD Referring Physician: Yulisa Skinner MD Technologist: Tasneem Brooke [facility] Room Number: 180-02 Indications: Rhythm: Sinus Technical Quality: Technically difficult study FINDINGS Left Ventricle Normal size left ventricle. Mild concentric left ventricular hypertrophy. Normal left ventricular ejection fraction visually estimated at 55%. No obvious regional wall motion abnormalities. Right Ventricle Normal right ventricular size and function. Right Atrium Normal right atrial size. Left Atrium Normal left atrial size. Mitral Valve Mild mitral annular calcification. Mitral valve thickened. Trace mitral regurgitation. Aortic Valve Diffuse thickening (sclerosis) of the aortic valve cusps without reduced excursion. No aortic stenosis. No aortic regurgitation. Tricuspid Valve Tricuspid valve not well visualized, grossly normal. Trace tricuspid regurgitation. Pulmonic Valve Pulmonic valve not well visualized, grossly normal. Pericardium Normal pericardium. Great Vessels Normal size aortic root. CONCLUSIONS Normal size left ventricle. Mild concentric left ventricular hypertrophy. Normal left ventricular ejection fraction visually estimated at 55%. Trace mitral regurgitation. Trace tricuspid regurgitation. Dmitriy Montes M.D. (Electronically Signed) Final Date: 10 October 2017 10:00 Amended: 12 October 2017 11:36 MEASUREMENTS (Male / Female) Normal Values 2D ECHO LV Diastolic Diameter PLAX 4.0 cm 4.2 - 5.9 / 3.9 - 5.3 cm LV Systolic Diameter PLAX 2.9 cm 2.1 - 4.0 cm LV Fractional Shortening PLAX 27.5 % 25 - 46 % LV Ejection Fraction 2D Teich 54.0 % IVS Diastolic Thickness 1.2 cm LVPW Diastolic Thickness 1.4 cm LV Relative Wall Thickness 0.7 LVOT Diameter 2.0 cm Aortic Root Diameter 3.7 cm LA Systolic Diameter LX 3.3 cm 3.0 - 4.0 / 2.7 - 3.8 cm LA Volume 90.0 cm 18 - 58 / 22 - 52 cm DOPPLER AV Peak Velocity 140.0 cm/s AV Peak Gradient 7.8 mmHg LVOT Peak Velocity 126.0 cm/s LVOT Peak Gradient 6.4 mmHg AV Area Cont Eq pk 2.8 cm Mitral E Point Velocity 87.9 cm/s Mitral A Point Velocity 102.0 cm/s Mitral E to A Ratio 0.9 MV Deceleration Time 156.0 ms PV Peak Velocity 148.0 cm/s PV Peak Gradient 8.8 mmHg LV E' Lateral Velocity 11.1 cm/s Mitral E to LV E' Lateral Ratio 7.9 LV E' Septal Velocity 10.3 cm/s Mitral E to LV E' Septal Ratio 8.5 SERVICE DATE: 10/11/17- EXAM TYPE: RAD - XRY-KNEE, LEFT EXAMINATION: INTRAOPERATIVE FLUOROSCOPIC GUIDANCE AND LEFT KNEE CLINICAL INFORMATION: Fracture. Internal fixation. COMPARISON: 10/08/2017. TECHNIQUE: Fluoroscopic time was utilized in the OR for Dr. Renae. Fluoroscopic images were obtained in AP, lateral, oblique projections. FINDINGS: Fluoroscopic guidance was provided during placement of a plate and screw device traversing the proximal left tibial fracture. On the final images, hardware is intact. Alignment is adequate. FLUOROSCOPY TIME: 72 seconds of fluoroscopic time was utilized for the entirety of this examination. IMPRESSION: Fluoroscopic guidance was provided during placement of a plate and screw device traversing the proximal left tibial fracture. On the final images, hardware is intact. Alignment is adequate. SERVICE DATE: 10/12/17- EXAM TYPE: US - US-DUPLEX VENOUS EXTREM UNI EXAMINATION: US TRIPLEX LOWER EXTREMITY, LEFT CLINICAL INFORMATION: Postoperative. Left lower extremity pain and swelling. COMPARISON: None TECHNIQUE: Color-flow triplex imaging with spectral analysis and compression Doppler were performed on the left lower extremity. FINDINGS: Respiratory variation, normal compression and augmented flow are noted throughout the left lower extremity. The visualized common femoral vein, superficial femoral vein, profunda femoral vein, popliteal vein and midcalf peroneal and posterior tibial venous segments show no evidence of deep venous thrombosis. Of note, the popliteal vein is partially compressed with surrounding swelling. There is a Schultz's cyst which measures 1.8 x 3 x 0.5 cm. IMPRESSION: No evidence of deep venous thrombosis involving the lower extremity. Small Schultz's cyst. SERVICE DATE: 10/15/17-08 EXAM TYPE: US - US-ABD/PELV ORGAN DOPPLER EXAMINATION: ULTRASOUND RENAL WITH DOPPLER CLINICAL INFORMATION: Hypertensive urgency COMPARISON: None. TECHNIQUE: Real-time grayscale, color Doppler, and duplex Doppler evaluation of the kidneys and renal vasculature was performed. Examination limited secondary to patient body habitus. FINDINGS: RENAL MEASUREMENTS: Right: 1.0 x 0.6 x 0.8 cm (Sag x AP x TV) Left: 10.8 x 6.1 x 5.0 cm (Sag x AP x TV) The renal parenchyma appears normal. There is a 1 cm exophytic cyst off the upper pole the right kidney. There is a 1.8 cm lower pole cyst of the left kidney. There is a 5 mm nonobstructing calculus within the midpole the left kidney. No right-sided renal calculi. No hydronephrosis bilaterally. DOPPLER INTERROGATION: Aorta: 44 cm/sec Right Main Renal Artery: Proximal: Not clearly visualized Mid: 82 cm/sec Distal: 76 cm/sec Left Main Renal Artery: Proximal: 120 cm/sec Mid: 62 cm/sec Distal: 62 cm/sec Renal-Aortic Ratio (RAR): Right: 1.9 Left: 2.7 IMPRESSION: 1. Limited examination secondary to patient body habitus. 2. 5 mm nonobstructing left renal calculus. No hydronephrosis. 3. Bilateral renal cysts. 4. Renal aortic ratios are within normal limits, suggesting there is no hemodynamically significant renal artery stenosis. However, the proximal right renal artery was not clearly visualized and the left renal aortic ratio was at the upper limits of normal. This patient may benefit from a follow-up renal ultrasound with Doppler examination or CTA of the abdomen. Disposition Summary Disposition Principal Diagnosis: 1. Left tibial fracture status post ORIF. 2. Hypertensive urgency Additional Diagnosis: 3. GERD 4. Type 2 diabetes mellitus Discharge Disposition: home health services Discharge Instructions General Discharge Information Code Status: Full Code Patient's Diet: Heart healthy diet Patient's Activity: Nonweightbearing on left leg for 6-8 weeks Follow-Up Instructions/Appts: Please follow up with your orthopedic surgeon within 1-2 weeks of discharge. Please follow up with your business analytics intern within 2 weeks of discharge. Medications at Discharge Discharge Medications: Stop taking the following medications: Oxycodone HCl/Acetaminophen (Percocet 5-325 MG Tablet) 5 MG-325 MG TABLET ORAL TWICE DAILY Qty = 30 Continue taking these medications: Zolpidem Tartrate (Ambien) 5 MG TABLET 1 Tablet ORAL Every night Qty = 30 Comments: NOT TAKEN IN HOSPITAL Ibuprofen (Ibuprofen) 600 MG TABLET 1 Tablet ORAL EVERY SIX HOURS NEEDED as needed for PAIN Qty = 20 Instructions: with food Comments: NOT TAKEN IN HOSPITAL Metformin HCl (Metformin HCl) 500 MG TABLET 500 Milligram ORAL TWICE DAILY Qty = 60 Comments: NOT TAKEN IN HOSPITAL This prescription has been renewed Bupropion HCl (Wellbutrin XL) 300 MG TAB.ER.24H 1 Tablet ORAL DAILY Qty = 30 Comments: LAST TAKEN: 10/22/17 @ 9 AM This prescription has been renewed Alprazolam (Xanax) 0.5 MG TABLET 1 Tablet ORAL DAILY NEEDED as needed for Anxiety Qty = 7 Comments: LAST TAKEN: 10/22/17 @ 11 AM This prescription has been renewed Start taking the following new medications: Omeprazole (Omeprazole) 40 MG CAPSULE.DR 1 Capsule ORAL DAILY BEFORE BREAKFAST Qty = 30 No Refills Instructions: . Comments: LAST TAKEN: 10/22/17 @ 9 AM Sennosides/Docusate Sodium (Senna S Tablet) 8.6 MG-50 MG TABLET 1 Tablet ORAL DAILY as needed for Constipation Qty = 30 No Refills Instructions: . Acetaminophen (Tylenol Arthritis) 650 MG TABLET.ER 1 Tablet ORAL EVERY 8 HOURS NEEDED as needed for PAIN SCALE 1-3 (MILD) Qty = 30 No Refills Instructions: . Tramadol HCl (Tramadol HCl) 50 MG TABLET 1 Tablet ORAL EVERY 8 HOURS NEEDED as needed for PAIN SCALE 4-6 (MODERATE ) Qty = 10 No Refills Instructions: . Comments: LAST TAKEN: 10/24/17 @ 11 AM Oxycodone HCl/Acetaminophen (Percocet 7.5-325 MG Tablet) 7.5 MG-325 MG TABLET 1 Tablet ORAL EVERY 8 HOURS NEEDED as needed for PAIN SCALE 7-10 (SEVERE) Qty = 15 No Refills Instructions: . Comments: LAST TAKEN: 10/22/17 @ 1:30 PM Aspirin (Aspirin*) 325 MG TABLET 325 Milligram ORAL DAILY Qty = 40 No Refills Instructions: . Comments: LAST TAKEN: 10/22/17 @ 9 AM Losartan (Cozaar) 100 MG TABLET 100 Milligram ORAL DAILY Qty = 30 No Refills Instructions: . Comments: LAST TAKEN: 10/22/17 @ 9 AM Amlodipine Besylate (Amlodipine Besylate) 10 MG TABLET 1 Tablet ORAL DAILY Qty = 30 No Refills Instructions: . Comments: LAST TAKEN: 10/22/17 @ 9 AM Chlorthalidone (Chlorthalidone) 50 MG TABLET 1 Tablet ORAL DAILY Qty = 30 No Refills Comments: LAST TAKEN: 10/22/17 @ 9 AM Copies To: Crispin LINDSAY,Javy Renae MD,Quinton Montes MD,Dmitriy Attending MD Review Statement Documenting Attending: Tremaine Asher MD Other Findings: The patient was seen on the day of discharge. He is to go home to his girlfriends home (may spend 1st night in hotel until 2nd ramp for his wheelchair is built). Will stay in [place] for initial recovery and then return to his home in [place] when able to fly again. He will have local follow-up with orthopedics, home services, and if needed primary care at [facility] with Dr. Montes. Continue on current meds. Limited supply of narcotics given. CTPMP checked.
[2017-10-13 22:21] VITALS: BP 160/60
[2017-10-14 06:43] VITALS: BP 172/82
--- NOTE | 2017-10-14 07:11 | PN- Housestaff ---
Marquez LINDSAY,[facility] 10/14/17 0710: Subjective Follow-up For: Left tibial Fracture s/p ORIF Hypertensive urgency Subjective: Patient seen and examined. States feeling better. Still has significant pain in his left leg but under control. States he had sweats early in the night with some chills but no fever. Review of Systems Constitutional: Reports: no symptoms. Objective Last 24 Hrs of Vital Signs/I&O Vital Signs Date Time Temp Pulse Resp B/P B/P Pulse O2 O2 Flow FiO2 Mean Ox Delivery Rate 10/14 0643 98.2 90 20 172/82 97 Room Air 10/13 2221 9.5 90 20 160/60 94 10/13 1506 97.5 92 20 154/76 97 10/13 0836 90 180/80 10/13 0800 96 Room Air Intake & Output 10/14 0800 10/14 0000 10/13 1600 Intake Total 100 960 Output Total 300 601 900 Balance -300 -501 60 Intake, IV 100 Intake, Oral 960 Number 1 0 Bowel Movements Output, Stool 1 Output, Urine 300 600 900 Physical Exam General Appearance: Alert, Oriented X3, Cooperative, Mild Distress Skin: No Rashes, No Breakdown Skin Temp/Moisture Exam: Warm/Dry Sepsis Skin Exam (color): Normal for Ethnicity HEENT: Atraumatic Cardiovascular: Normal S1, Normal S2, No Murmurs Lungs: Normal Air Movement Abdomen: Soft, No Tenderness Neurological: Normal Speech Extremities: edema of LLE with tenderness to palpation. Surgical dressing intact Assessment/Plan Assessment: Mr. Diane is a pleasant 62-year-old gentleman with past medical history of hypertension, anxiety and depression who was brought in by ambulance after he had a fall. Assessment: 1. Hypertensive Urgency - resolved 2. Left Tibial fracture s/p ORIF 3. History of diabetes 4. History of hypertension Plan: * Increase Amlodipine 10mg and HCTZ 25mg for blood pressure control. Continue Losartan at 100mg * Afebrile overnight. * Blood and urine cultures - no growth so far. * CXR showed no evidence of pnemonia. * Pain control with Motrin, tramadol and percocet as needed. * PT recommends discharge to STR. * However, patient will go home with physical therapy as his insurance does not cover inpatient STR. * No weight bearing on LLE for 6-8 weeks * A prescription has been provided for a blood pressure kit. Patient has been advised to monitor his blood pressure over the weekend and if his pressure is still elevated to follow up with Dr Montes in his office. * Stable for discharge. * Insulin SS with Accucheks * Diet: Diabetic * DVT Prophylaxis: Aspirin and ALPS * Code: Full Problem List: 1. Tibial plateau fracture, left Pain Ratin Pain Location: none Pain Goal: Remain pain free Pain Plan: none Tomorrow's Labs & Rationales: none Michelle Au MD 10/14/17 1158: Attending MD Review Statement Attending Statement Attending MD Statement: examined this patient, discuss w/resident/PA/CLAY MAKER, agreed w/resident/PA/CLAY MAKER, reviewed EMR data (avail), discussed with nursing, discussed with case mgmt, reviewed images, amended to note Attending Assessment/Plan: Patient seen and examined, feels overall better today. Did get a good night sleep last night. No further fever spikes.All cx ngtd, cxr clear. Vital Signs Date Time Temp Pulse Resp B/P B/P Pulse O2 O2 Flow FiO2 Mean Ox Delivery Rate 10/14 1112 97.0 84 20 162/70 96 Room Air 10/14 0857 98.2 90 20 172/82 10/14 0857 98.2 90 20 172/82 10/14 0643 98.2 90 20 172/82 97 Room Air 10/13 2221 9.5 90 20 160/60 94 10/13 1506 97.5 92 20 154/76 97 on exam; aox3, nad. cv; s1, s2, rrr resp; clear abd; soft, nt, bs+ ext; + immobilizer on the left lower extremity. No labs today. A/P; 62-year-old male originally from [place] who is visiting here with past medical history significant for hypertension, anxiety, depression, borderline diabetes admitted with a mechanical fall and sustained Comminuted, mildly depressed fracture of the lateral aspect of the tibial plateau. S/P surgery for the Tibial fx yesterday POD #3 today. Postop care per orthopedic. Patient is nonweightbearing on left lower extremity for 6-8 weeks per orthopedic. Unfortunately he does not have insurance benefit or money to pay to go to rehabilitation. At this point he would have to go home with home services. We have increased the dose of his hydrochlorothiazide, his amlodipine and he has been kept on losartan for blood pressure control. Pt on percocet and ibuprofen for pain mx. Otherwise he is medically stable for discharge today.
[2017-10-14] MEDS ORDERED: AMLODIPINE BESY10 M1 PO ×2 (08:10→09:46)
[2017-10-14] MEDS ORDERED: SENNA S TABLET1 EACH PO ×2 (08:10→09:46)
[2017-10-14] MEDS ORDERED: HYDROCHLOROTHIA25 M1 PO ×2 (08:10→09:46)
[2017-10-14] MEDS ORDERED: OMEPRAZOLE40 M1 PO ×2 (08:13→09:46)
--- NOTE | 2017-10-14 09:16 | PN- Orthopedic ---
Subjective Subjective: Pt. reports still having pain to LLE when moved around but comfortable when resting. States he takes Percocet approximately every 4 to 5 hrs Objective Vital Signs and I&Os Vital Signs Date Time Temp Pulse Resp B/P B/P Pulse O2 O2 Flow FiO2 Mean Ox Delivery Rate 10/14 0857 98.2 90 20 172/82 10/14 0857 98.2 90 20 172/82 10/14 0643 98.2 90 20 172/82 97 Room Air 10/13 2221 9.5 90 20 160/60 94 10/13 1506 97.5 92 20 154/76 97 Intake & Output 10/14 1600 10/14 0800 10/14 0000 10/13 1600 10/13 0800 10/13 0000 Intake Total 100 960 360 60.5 Output Total 300 643 539 1845 Balance -300 -501 60 -790 60.5 Intake, IV 100 10.5 Intake, Oral 960 360 50 Number 1 0 Bowel Movements Output, Stool 1 Output, Urine 300 576 217 5927 Patient 290 lb Weight Alert, oriented , looks comfortable LLE with soft brace on.Neurovascular intact, foot warm with palpable distal pulses.Has mild swelling throughout. Incision without erythrema, scant serosang. drainage noted on dressing. Assessment/Plan Assessment/Plan s/p L tibial plateau fx/ORIF/ fasciotomy on 10/11 LLE intact neurovascularly Incision without signs of infection Dressing changed this morning. Xeroform placed along incision, dry 4X4 and ABD with stockinette over. Brace applied. He tolerated dressing change passive movement for dressing change without problems. No weight bearing 6 to 8 weeks. No surgical issues. d/c plans when medically stable as per primary team. Call if any issues.
[2017-10-14] MEDS ORDERED: ASPIRIN325 M2 PO (09:46)
[2017-10-14] MEDS ORDERED: COZAAR100 M1 PO (09:46)
[2017-10-14] MEDS ORDERED: TRAMADOL HCL50 M1 PO (09:46)
[2017-10-14] MEDS ORDERED: TYLENOL ARTHRI650 M1 PO (09:46)
[2017-10-14] MEDS ORDERED: PERCOCET 7.5-31 EACH PO (09:46)
[2017-10-14 11:12] VITALS: BP 162/70
[2017-10-14 13:32] VITALS: BP 150/62
[2017-10-14 22:13] VITALS: BP 130/70
[2017-10-15 06:12] VITALS: BP 134/70
--- NOTE | 2017-10-15 07:10 | PN- Housestaff ---
Marquez LINDSAY,[facility] 10/15/17 0710: Subjective Follow-up For: Tibial Fracture Hypertensive Urgency Subjective: Patient seen and examined. Reports feeling okay. Still complains of persistent pain in his left leg. Review of Systems Constitutional: Reports: no symptoms. Objective Last 24 Hrs of Vital Signs/I&O Vital Signs Date Time Temp Pulse Resp B/P B/P Pulse O2 O2 Flow FiO2 Mean Ox Delivery Rate 10/15 0612 97.8 73 20 134/70 97 Room Air 10/14 2213 98.5 92 20 130/70 99 10/14 1332 98.2 90 20 150/62 94 Room Air 10/14 1112 97.0 84 20 162/70 96 Room Air 10/14 0857 98.2 90 20 172/82 10/14 0857 98.2 90 20 172/82 Intake & Output 10/15 0800 10/15 0000 10/14 1600 Intake Total 200 250 800 Output Total 300 1 300 Balance -100 249 500 Intake, IV 50 Intake, Oral 150 250 800 Number 1 Bowel Movements Output, Stool 1 Output, Urine 300 300 Physical Exam General Appearance: Alert, Oriented X3, Cooperative, Mild Distress Skin: No Rashes, No Breakdown Skin Temp/Moisture Exam: Warm/Dry Sepsis Skin Exam (color): Normal for Ethnicity HEENT: Atraumatic Cardiovascular: Normal S1, Normal S2, No Murmurs Lungs: Normal Air Movement Abdomen: Soft, No Tenderness Neurological: Normal Speech Extremities: 2+ left foot edema up to shins Last 24 Hrs of Lab/[place] Results Last 24 Hrs of Labs/Mics: Laboratory Tests 10/14/17 1455: Urine Color YEL, Urine Clarity CLEAR, Urine pH 6.0, Ur Specific [place] <= 1.005 , Urine Protein NEG, Urine Ketones NEG, Urine Nitrite NEG, Urine Bilirubin NEG, Urine Urobilinogen 0.2, Ur Leukocyte Esterase NEG, Ur Microscopic EXAM NOT REQUIRED, Urine Hemoglobin NEG, Urine Glucose NEG Assessment/Plan Assessment: Mr. Diane is a pleasant 62-year-old gentleman with past medical history of hypertension, anxiety and depression who was brought in by ambulance after he had a fall. Assessment: 1. Hypertensive Urgency - resolved 2. Left Tibial fracture s/p ORIF 3. History of diabetes 4. History of hypertension Plan: * Continue Amlodipine 10mg and Chlorthalidone 25mg for blood pressure control. Continue Losartan at 100mg * Would monitor on his current regimen for now. * Renal U/S was done to r/o secondary causes of hypertension and was negative. * Blood and urine cultures - negative. * CXR showed no evidence of pnemonia. * Pain control with Motrin, tramadol and percocet as needed. Morphine for breakthrough. * PT recommends discharge to STR. * However, patient will go home with physical therapy as his insurance does not cover inpatient STR. He will stay in hospital until he is well enough to go home. * No weight bearing on LLE for 6-8 weeks * A prescription has been provided for a blood pressure kit. Patient has been advised to monitor his blood pressure over the weekend and if his pressure is still elevated to follow up with Dr Montes in his office. * Insulin SS with Accucheks * Diet: Diabetic * DVT Prophylaxis: Aspirin and ALPS * Code: Full Problem List: 1. Hypertensive urgency Pain Ratin Pain Location: none Pain Goal: Remain pain free Pain Plan: none Tomorrow's Labs & Rationales: none Consulting Request: Consulting Specialty: Orthopedics Roe LINDSAY,[facility] 10/15/17 1157: Attending MD Review Statement Attending Statement Attending MD Statement: examined this patient, discuss w/resident/PA/CLINICAL REHABILITATION LIAISON, agreed w/resident/PA/CLINICAL REHABILITATION LIAISON, reviewed EMR data (avail), discussed with nursing, discussed with case mgmt, reviewed images, amended to note Attending Assessment/Plan: Patient seen and examined, doing better overall. Cultures remain negative. No further fever spikes. BP overall better. Vital Signs Date Time Temp Pulse Resp B/P B/P Pulse O2 O2 Flow FiO2 Mean Ox Delivery Rate 10/15 0820 89 150/80 10/15 0820 89 150/80 10/15 0612 97.8 73 20 134/70 97 Room Air 10/14 2213 98.5 92 20 130/70 99 10/14 1332 98.2 90 20 150/62 94 Room Air on exam; aox3, nad. cv; s1, s2, rrr resp; clear abd; soft, nt, bs+ ext; + immobilizer on the left lower extremity. Laboratory Tests 10/14 1455 Urines Urine Color (YEL,AMB,STR) YEL Urine Clarity (CLEAR) CLEAR Urine pH (5.0 - 8.0) 6.0 Ur Specific [place] (1.001 - 1.035) <= 1.005 Urine Protein (NEG,<30 MG/DL) NEG Urine Ketones (NEG) NEG Urine Nitrite (NEG) NEG Urine Bilirubin (NEG) NEG Urine Urobilinogen (0.1 - 1.0 EU/dl) 0.2 Ur Leukocyte Esterase (NEG) NEG Ur Microscopic EXAM NOT REQUIRED Urine Hemoglobin (NEG) NEG Urine Glucose (N MG/DL) NEG A/P: 62-year-old male originally from [place] who is visiting here with past medical history significant for hypertension, anxiety, depression, borderline diabetes admitted with a mechanical fall and sustained Comminuted, mildly depressed fracture of the lateral aspect of the tibial plateau. S/P surgery for the Tibial fx yesterday POD #4 today. All cultures remain negative. Patient remains afebrile. Blood pressure is much better. Renal ultrasound nondiagnostic. Patient continued to work with physical therapy until he is better in terms of mobility. Continue current management. Patient on full dose aspirin for DVT prophylaxis. Will be discharged home when improved from mobility stand point.
--- NOTE | 2017-10-15 10:49 | ULTRASOUND REPORT ---
EXAMINATION: ULTRASOUND RENAL WITH DOPPLER CLINICAL INFORMATION: Hypertensive urgency COMPARISON: None. TECHNIQUE: Real-time grayscale, color Doppler, and duplex Doppler evaluation of the kidneys and renal vasculature was performed. Examination limited secondary to patient body habitus. FINDINGS: RENAL MEASUREMENTS: Right: 1.0 x 0.6 x 0.8 cm (Sag x AP x TV) Left: 10.8 x 6.1 x 5.0 cm (Sag x AP x TV) The renal parenchyma appears normal. There is a 1 cm exophytic cyst off the upper pole the right kidney. There is a 1.8 cm lower pole cyst of the left kidney. There is a 5 mm nonobstructing calculus within the midpole the left kidney. No right-sided renal calculi. No hydronephrosis bilaterally. DOPPLER INTERROGATION: Aorta: 44 cm/sec Right Main Renal Artery: Proximal: Not clearly visualized Mid: 82 cm/sec Distal: 76 cm/sec Left Main Renal Artery: Proximal: 120 cm/sec Mid: 62 cm/sec Distal: 62 cm/sec Renal-Aortic Ratio (RAR): Right: 1.9 Left: 2.7 IMPRESSION: 1. Limited examination secondary to patient body habitus. 2. 5 mm nonobstructing left renal calculus. No hydronephrosis. 3. Bilateral renal cysts. 4. Renal aortic ratios are within normal limits, suggesting there is no hemodynamically significant renal artery stenosis. However, the proximal right renal artery was not clearly visualized and the left renal aortic ratio was at the upper limits of normal. This patient may benefit from a follow-up renal ultrasound with Doppler examination or CTA of the abdomen.
--- NOTE | 2017-10-15 11:52 | PN- Cardiology ---
Subjective Subjective: The patient is feeling well. No obvious cardiac symptoms. Blood pressure improved but remains slightly on the high side at 150/80. Objective Vital Signs and I&Os Vital Signs Date Time Temp Pulse Resp B/P B/P Pulse O2 O2 Flow FiO2 Mean Ox Delivery Rate 10/15 0820 89 150/80 10/15 0820 89 150/80 10/15 0612 97.8 73 20 134/70 97 Room Air 10/14 2213 98.5 92 20 130/70 99 10/14 1332 98.2 90 20 150/62 94 Room Air Intake & Output 10/15 1600 10/15 0810/15 0000 10/14 1600 10/14 0800 10/14 0000 Intake Total 200 250 800 100 Output Total 500 300 1 300 300 601 Balance -500 -100 249 500 -300 -501 Intake, IV 50 100 Intake, Oral 150 250 800 Number 1 1 Bowel Movements Output, Stool 1 1 Output, Urine 500 300 300 300 600 Physical Exam: General Appearance: well developed/nourished, alert, awake, oriented Head: normal HEENT: Normal Neck: supple, JVP normal, carotid upstrokes normal bilaterally, no masses or thyromegaly Respiratory: chest non-tender, clear to auscultation and percussion bilaterally Cardiovascular: regular rate/rhythm, normal S1, S2, 1/6 systolic murmur Abdomen: normal bowel sounds, soft, non-tender Extremities: normal inspection, no edema Vascular: Pulses are 2+ and equal bilaterally Neurologic: Grossly normal/nonfocal Current Medications: Current Medications Sig/Shan Start time Last Medication Dose Route Stop Time Status Admin Alprazolam 0.5 MG DAILY NEEDED PRN 10/12 1630 AC 10/15 PO 10/19 1629 0815 Amlodipine Besylate 10 MG DAILY 10/14 899 AC 10/15 PO 0820 Aspirin 325 MG DAILY 10/12 899 AC 10/15 PO 0816 Chlorthalidone 50 MG DAILY 10/15 899 AC 10/15 PO 0926 Docusate Sodium 100 MG BID 10/12 899 AC 10/15 PO 0816 Hydrochlorothiazide 25 MG DAILY 10/14 09 DC 10/14 PO 0857 Ibuprofen 800 MG ONCE ONE 10/14 1235 DC PO 10/14 1236 Ibuprofen 800 MG TID PRN 10/15 811 AC 10/14 PO 2020 Insulin Aspart 0 TIDAC 10/12 0800 AC 10/14 MN 1225 Losartan Potassium 100 MG DAILY 10/11 0900 AC 10/15 PO 0820 Omeprazole 40 MG BID 10/13 0906 AC 10/15 PO 0816 Oxycodone/ 2 TAB Q6-PRN PRN 10/14 0815 AC 10/15 Acetaminophen PO 0816 Oxycodone/ 1 TAB Q6P PRN 10/08 1745 AC 10/12 Acetaminophen PO 0546 Senna/Docusate Sodium 2 TAB DAILY PRN 10/10 1030 AC 10/13 PO 0847 Results Last 48 Hrs of Labs/Mics: Laboratory Tests 10/14/17 1455: Urine Color YEL, Urine Clarity CLEAR, Urine pH 6.0, Ur Specific [place] <= 1.005 , Urine Protein NEG, Urine Ketones NEG, Urine Nitrite NEG, Urine Bilirubin NEG, Urine Urobilinogen 0.2, Ur Leukocyte Esterase NEG, Ur Microscopic EXAM NOT REQUIRED, Urine Hemoglobin NEG, Urine Glucose NEG Assessment/Plan Assessment/Plan Assessment: 1. Hypertension, improved but still not optimal-at the moment, the patient's blood pressure is not optimal but within a tolerable range. I would continue current medications for now. Continue to monitor the blood pressure closely as the patient becomes more mobile. If necessary, consider adding low-dose carvedilol 3.125 mg twice daily. For now I would try to keep the medicines the same. I suspect that the patient will ultimately go back on a Edarbyclor once he gets back home. 2. Hyperlipidemia 3. Tibia fracture, status post surgery 4. Borderline prolonged QT interval Recommendations: * Continue current medications. * Follow up in the office 2 weeks after discharge with Dr. Montes Continue telemetry? No
[2017-10-15 13:36] VITALS: BP 142/90
[2017-10-15 22:04] VITALS: BP 122/72
[2017-10-16 06:17] VITALS: BP 162/88
--- NOTE | 2017-10-16 06:21 | PN- Housestaff ---
See Addendum Subjective Follow-up For: Tibial fracture status post ORIF Subjective: No overnight events. Patient slept well and his pain is well controlled. He has no chest pain, shortness of breath, or other complaints. Review of Systems Constitutional: Reports: no symptoms. EENTM: Reports: no symptoms. Cardiovascular: Reports: no symptoms. Respiratory: Reports: no symptoms. Gastrointestinal: Reports: no symptoms. Genitourinary: Reports: no symptoms. Musculoskeletal: Reports: no symptoms. Skin: Reports: no symptoms. Neurological/Psychological: Reports: no symptoms. Hematologic/Endocrine: Reports: no symptoms. Immunologic/Allergic: Reports: no symptoms. Objective Last 24 Hrs of Vital Signs/I&O Vital Signs Date Time Temp Pulse Resp B/P B/P Pulse O2 O2 Flow FiO2 Mean Ox Delivery Rate 10/16 0617 98.8 89 20 162/88 95 Room Air 10/15 2204 98.7 80 20 122/72 96 10/15 1336 97.0 93 20 142/90 98 Room Air 10/15 0820 89 150/80 10/15 0820 89 150/80 10/15 0800 Room Air Intake & Output 10/16 0800 10/16 0000 10/15 1600 Intake Total 480 480 Output Total 700 350 500 Balance -700 130 -20 Intake, Oral 480 480 Output, Urine 700 350 500 Physical Exam General Appearance: Alert, Oriented X3, Cooperative, No Acute Distress Cardiovascular: Regular Rate, Normal S1, Normal S2 Lungs: Clear to Auscultation Extremities: LLE in brace. Current Medications: Current Medications Sig/Shan Start time Last Medication Dose Route Stop Time Status Admin Alprazolam 0.5 MG DAILY NEEDED PRN 10/12 1630 AC 10/15 PO 10/19 1629 1500 Amlodipine Besylate 10 MG DAILY 10/14 09 AC 10/15 PO 0820 Aspirin 325 MG DAILY 10/12 899 AC 10/15 PO 0816 Chlorthalidone 50 MG DAILY 10/15 09 AC 10/15 PO 09 Docusate Sodium 100 MG BID 10/12 09 AC 10/15 PO 2046 Ibuprofen 800 MG .STK-MED ONE 10/15 1712 DC PO 10/15 1713 Ibuprofen 800 MG TID PRN 10/14 0812 AC 10/15 PO 1713 Insulin Aspart 0 TIDAC 06/26 0800 AC 10/14 SC 1225 Losartan Potassium 100 MG DAILY 10/11 0900 AC 10/15 PO 0820 Omeprazole 40 MG BID 10/13 0906 AC 10/15 PO 2046 Oxycodone/ 2 TAB Q6-PRN PRN 10/14 0815 AC 10/16 Acetaminophen PO 0555 Oxycodone/ 1 TAB Q6P PRN 10/08 1745 AC 10/15 Acetaminophen PO 1500 Senna/Docusate Sodium 2 TAB DAILY PRN 10/10 1030 AC 10/13 PO 0847 Assessment/Plan Assessment: Mr. Diane is a pleasant 62-year-old gentleman with past medical history of hypertension, anxiety and depression who was brought in by ambulance after he had a fall. Assessment: 1. Hypertensive Urgency - resolved 2. Left Tibial fracture s/p ORIF 3. History of diabetes 4. History of hypertension Plan: Continue Amlodipine 10mg and Chlorthalidone 25mg for blood pressure control. Continue Losartan at 100mg. follow-up with cardiology recommendations Would monitor on his current regimen for now. Renal U/S was done to r/o secondary causes of hypertension and was negative. Blood and urine cultures - negative. CXR showed no evidence of pnemonia. Pain control with Motrin, tramadol and percocet as needed. Morphine for breakthrough. PT recommends discharge to STR. However, patient will go home with physical therapy as his insurance does not cover inpatient STR. He will stay in hospital until he is well enough to go home. No weight bearing on LLE for 6-8 weeks A prescription has been provided for a blood pressure kit. Patient has been advised to monitor his blood pressure over the weekend and if his pressure is still elevated to follow up with Dr Montes in his office. Insulin SS with Accucheks Diet: Diabetic DVT Prophylaxis: Aspirin and ALPS Code: Full Problem List: 1. Tibial plateau fracture, left Pain Ratin Pain Location: no Pain Goal: Remain pain free Pain Plan: see a/p Tomorrow's Labs & Rationales: no Consulting Request: Consulting Specialty: Orthopedics
[2017-10-16 14:23] VITALS: BP 158/74
[2017-10-16 21:37] VITALS: BP 166/90
[2017-10-17 06:20] VITALS: BP 160/88
[2017-10-17 11:18] LABS: ABSOLUTE BASOPHIL COUNT 0.1 /CUMM (0.0-0.2); ABSOLUTE EOSINOPHIL COUNT 0.3 /CUMM (0.0-0.7); ABSOLUTE LYMPH COUNT 0.9 /CUMM (1.2-3.4); ABSOLUTE MONOCYTE COUNT 0.9 /CUMM (0.10-0.60); BASOPHIL % 0.7 % (0.0-2.0); EOSINOPHIL % 3.7 % (0-5); GRANULOCYTE % 73.8 % (42.2-75.2); HEMATOCRIT 37.6 % (42-52); MEAN CORPUSCULAR HGB 29.3 PG (27.0-31.0); MEAN CORPUSCULAR HGB CONC 33.5 G/DL (33.0-37.0); MEAN CORPUSCULAR VOLUME 87.5 FL (80.0-94.0); MEAN PLATELET VOLUME 7.6 FL (7.4-10.4); RBC DISTRIBUTION WIDTH 14.4 % (11.5-14.5); WHITE BLOOD CELL COUNT 8.1 /CUMM (4.8-10.8)
[2017-10-17 11:36] LABS: PLATELET COUNT 357 /CUMM (130-400)
--- NOTE | 2017-10-17 11:48 | PN- Att Addend ---
Attending Addendum Attending Brief Note Patient seen and examined, complain of feeling discomfort in the left lower extremity. Patient is very concerned about going back to his finances house upon discharge and does not want to do that. Vital Signs Date Time Temp Pulse Resp B/P B/P Pulse O2 O2 Flow FiO2 Mean Ox Delivery Rate 10/17 0620 98.8 82 20 160/88 95 Room Air 10/16 2137 99.0 87 18 166/90 97 10/16 1423 98.1 88 20 158/74 97 on exam; aox3, nad. cv; s1, s2, rrr resp; clear abd; soft, nt, bs+ ext; + immobilizer on the left lower extremity.Ramu look clean. Laboratory Tests 10/17 1026 Chemistry Sodium Pending Potassium Pending Chloride Pending Carbon Dioxide Pending Anion Gap Pending BUN Pending Creatinine Pending BUN/Creatinine Ratio Pending Hematology CBC w Diff NO MAN DIFF REQ WBC (4.8 - 10.8 /CUMM) 8.1 RBC (4.70 - 6.10 /CUMM) 4.30 L Hgb (14.0 - 18.0 G/DL) 12.6 L Hct (42 - 52 %) 37.6 L MCV (80.0 - 94.0 FL) 87.5 MCH (27.0 - 31.0 PG) 29.3 MCHC (33.0 - 37.0 G/DL) 33.5 RDW (11.5 - 14.5 %) 14.4 Plt Count (130 - 400 /CUMM) 357 MPV (7.4 - 10.4 FL) 7.6 Gran % (42.2 - 75.2 %) 73.8 Lymphocytes % (20.5 - 51.1 %) 11.2 L Monocytes % (1.7 - 9.3 %) 10.6 H Eosinophils % (0 - 5 %) 3.7 Basophils % (0.0 - 2.0 %) 0.7 Absolute Granulocytes (1.4 - 6.5 /CUMM) 6.0 Absolute Lymphocytes (1.2 - 3.4 /CUMM) 0.9 L Absolute Monocytes (0.10 - 0.60 /CUMM) 0.9 H Absolute Eosinophils (0.0 - 0.7 /CUMM) 0.3 Absolute Basophils (0.0 - 0.2 /CUMM) 0.1 A/P; 62-year-old male originally from [place] who is visiting here with past medical history significant for hypertension, anxiety, depression, borderline diabetes admitted with a mechanical fall and sustained Comminuted, mildly depressed fracture of the lateral aspect of the tibial plateau. S/P surgery for the Tibial fx yesterday POD #6 today. Patient overall doing well. Blood pressure under reasonable control. Patient has been followed by cardiology and currently on 3 anti-hypertensives. Postop care per orthopedic. Patient aggressively working with physical therapy continue current management. Patient on full dose aspirin for DVT prophylaxis per orthopedic.
--- NOTE | 2017-10-17 12:41 | PN- Housestaff ---
Subjective Follow-up For: Tibial Fracture s/o ORIF Hypertensive Emergency Subjective: Pt. is complaining of a rough night due to persistent pain in left lower extremity 10/10 pain. Denies fever, night sweats, chills. C/o pain in right shoulder, but attributes to having to pull himself out of bed using right arm. Review of Systems Constitutional: Reports: see HPI. Objective Last 24 Hrs of Vital Signs/I&O Vital Signs Date Time Temp Pulse Resp B/P B/P Pulse O2 O2 Flow FiO2 Mean Ox Delivery Rate 10/18 619 98.8 82 20 160/88 95 Room Air 10/16 2137 99.0 87 18 166/90 97 10/16 1423 98.1 88 20 158/74 97 Intake & Output 10/17 1600 10/17 0800 10/17 0000 Intake Total 300 500 Output Total 1100 450 Balance -800 50 Intake, Oral 300 500 Output, Urine 1100 450 Physical Exam General Appearance: Alert, Oriented X3, Cooperative Skin: No Rashes Skin Temp/Moisture Exam: Warm/Dry HEENT: Atraumatic, EOMI Cardiovascular: Regular Rate, Normal S1, Normal S2 Lungs: Clear to Auscultation, Normal Air Movement Abdomen: Normal Bowel Sounds, Soft Neurological: Normal Speech, Normal Tone, Sensation Intact, Normal ROM in bilat. upper extremities Extremities: 2+ edema in left lower extremity Symmetrial bilat. Dorsal Pedis pulse Vascular: Normal Pulses, Pulses Symmetrical Current Medications: Current Medications Sig/Shan Start time Last Medication Dose Route Stop Time Status Admin Alprazolam 0.5 MG DAILY NEEDED PRN 10/12 1630 AC 10/15 PO 10/19 1629 1500 Amlodipine Besylate 10 MG DAILY 10/14 09 AC 10/17 PO 0847 Aspirin 325 MG DAILY 10/12 899 AC 10/17 PO 0847 Chlorthalidone 50 MG DAILY 10/15 09 AC 10/17 PO 0847 Docusate Sodium 100 MG BID 10/12 899 AC 10/17 PO 0847 Ibuprofen 800 MG TID PRN 10/14 0812 AC 10/16 PO 1040 Insulin Aspart 0 TIDAC 10/13 799 AC 10/16 SC 1158 Losartan Potassium 100 MG DAILY 10/11 899 AC 10/17 PO 0847 Omeprazole 40 MG BID 10/13 905 AC 10/17 PO 0847 Oxycodone/ 2 TAB Q6-PRN PRN 10/14 0815 DC 10/17 Acetaminophen PO 0234 Oxycodone/ 1 TAB Q6P PRN 10/08 1745 AC 10/15 Acetaminophen PO 1500 Senna/Docusate Sodium 2 TAB DAILY PRN 10/10 1030 AC 10/13 PO 0847 Tramadol HCl 50 MG Q6 PRN 10/17 1000 AC PO Last 24 Hrs of Lab/Germain Results Last 24 Hrs of Labs/Mics: Laboratory Tests 10/17/17 1026: Anion Gap 14, Estimated GFR > 60, BUN/Creatinine Ratio 25.6 H, CBC w Diff NO MAN DIFF REQ, RBC 4.30 L, MCV 87.5, MCH 29.3, MCHC 33.5, RDW 14.4, MPV 7.6, Gran % 73.8, Lymphocytes % 11.2 L, Monocytes % 10.6 H, Eosinophils % 3.7, Basophils % 0.7, Absolute Granulocytes 6.0, Absolute Lymphocytes 0.9 L, Absolute Monocytes 0.9 H, Absolute Eosinophils 0.3, Absolute Basophils 0.1 Assessment/Plan Assessment: Mr. Diane is a 62yo M from [place], has a PMHx significant for hypertension, anxiety and depression who was brought in by ambulance after he sustained a fall from 3 stairs at his Fiance's house. Patient is post ORIF, and is currently working with PT. Assessment: 1. Tibial Fracture- s/p ORIF Day #5 2. Hypertensive Urgency- Resolved Patient has been 3 drug regiment, remains consistently in 160s SBP. Renal US on 10/15/17 is negative for KODI. ECHO on 10/10/17- LVEF is 55% 3. History of Hypertension 4. History of Diabetes Plan: * Pt. has met goals for D/C home with service since insurance does not provide STR. * Add Tramadol 50mg for Pain control * Continue Percocet and Morphine * Continue Amlopidione, Losartan, HCTZ for Hypertension Problem List: 1. Tibial plateau fracture, left Pain Ratin Pain Location: Left Tibia Pain Goal: Pain 7 or less Pain Plan: Continue Percocet, add Tramadol Tomorrow's Labs & Rationales: N/A will discharge patient home today Consulting Request: Consulting Specialty: Orthopedics
[2017-10-17 14:32] VITALS: BP 160/80
[2017-10-17 22:24] VITALS: BP 168/82
[2017-10-18 06:47] VITALS: BP 158/80
--- NOTE | 2017-10-18 07:49 | PN- Housestaff ---
See Addendum Subjective Follow-up For: Tibial fracture s/o ORIF day #6 Complaints: pain scale (0-10) Subjective: No acute events overnight. Patient has no c/o, states his pain has been improving while at rest, and is aggravted with movement especially following physical therapy. Review of Systems Constitutional: Reports: see HPI. Objective Last 24 Hrs of Vital Signs/I&O Vital Signs Date Time Temp Pulse Resp B/P B/P Pulse O2 O2 Flow FiO2 Mean Ox Delivery Rate 10/18 0835 80 158/80 07 0647 97.8 80 18 158/80 97 Room Air 10/17 2224 98.4 85 16 168/82 97 10/17 1432 98.4 102 18 160/80 99 Intake & Output 10/18 1600 10/18 0800 10/18 0000 Intake Total 500 Output Total 1225 550 Balance -1225 -50 Intake, Oral 500 Number 0 Bowel Movements Output, Urine 1225 550 Physical Exam General Appearance: Alert, Oriented X3, Cooperative, Mild Distress Skin: No Rashes HEENT: Atraumatic, EOMI Cardiovascular: Regular Rate, Normal S1, Normal S2 Lungs: Clear to Auscultation, Normal Air Movement Abdomen: Normal Bowel Sounds, Soft Extremities: Normal Pulses, No Tenderness/Swelling, 1+ edema on LLE, pain to palpation along tibial shaft Vascular: Normal Pulses Current Medications: Current Medications Sig/Shan Start time Last Medication Dose Route Stop Time Status Admin Alprazolam 0.5 MG DAILY NEEDED PRN 10/12 1630 AC 10/17 PO 10/19 1629 1329 Amlodipine Besylate 10 MG DAILY 10/14 899 AC 10/18 PO 0836 Aspirin 325 MG DAILY 10/12 899 AC 10/18 PO 0834 Chlorthalidone 50 MG DAILY 10/15 899 AC 10/18 PO 0835 Docusate Sodium 100 MG BID 10/12 899 AC 10/18 PO 0834 Ibuprofen 800 MG TID PRN 10/14 0812 AC 10/16 PO 1040 Insulin Aspart 0 TIDAC 10/13 799 AC 10/16 SC 1158 Losartan Potassium 100 MG DAILY 10/11 899 AC 10/18 PO 0835 Omeprazole 40 MG BID 10/13 905 AC 10/18 PO 0836 Oxycodone/ 2 TAB Q6-PRN PRN 10/14 0815 DC 10/17 Acetaminophen PO 0234 Oxycodone/ 1 TAB Q6P PRN 10/08 1745 AC 10/17 Acetaminophen PO 2140 Senna/Docusate Sodium 2 TAB DAILY PRN 10/10 1030 AC 10/13 PO 0847 Tramadol HCl 50 MG Q6 PRN 10/17 1000 AC 10/18 PO 0836 Last 24 Hrs of Lab/Germain Results Last 24 Hrs of Labs/Mics: Laboratory Tests 10/17/17 1026: Anion Gap 14, Estimated GFR > 60, BUN/Creatinine Ratio 25.6 H, CBC w Diff NO MAN DIFF REQ, RBC 4.30 L, MCV 87.5, MCH 29.3, MCHC 33.5, RDW 14.4, MPV 7.6, Gran % 73.8, Lymphocytes % 11.2 L, Monocytes % 10.6 H, Eosinophils % 3.7, Basophils % 0.7, Absolute Granulocytes 6.0, Absolute Lymphocytes 0.9 L, Absolute Monocytes 0.9 H, Absolute Eosinophils 0.3, Absolute Basophils 0.1 Assessment/Plan Assessment: Mr. Diane is a 62yo M from [place], has a PMHx significant for hypertension, anxiety and depression who was brought in by ambulance after he sustained a fall from 3 stairs at his Fiance's house. Patient is s/p ORIF Day #6, and is currently working with PT to be on minimal assitance. Assessment: 1. Tibial Fracture- s/p ORIF Day #6 2. Hypertensive Urgency- Resolved Patient currently on 3 drug regiment, remains consistently in 160s SBP. Renal US on 10/15/17 is negative for KODI. ECHO on 10/10/17- LVEF is 55% 3. History of Hypertension 4. History of Diabetes Plan: * Discharge pending SRT placement * Pain control, patient is currently on Tramadol, Percocet, * Continue Anti-HTN medication- Chlorthalidone, Amlodipine, Losartan * Continue Daily glucose monitoring and Insulin SS Problem List: 1. Tibial plateau fracture, left Pain Ratin Pain Location: Left Tibia Pain Goal: Pain 4 or less Pain Plan: Oxycodone, Tramadol Tomorrow's Labs & Rationales: None Consulting Request: Consulting Specialty: Orthopedics
[2017-10-18 14:04] VITALS: BP 132/90
--- NOTE | 2017-10-18 18:17 | PN- Cardiology ---
Subjective Subjective: The patient continues to complain of left lower extremity pain. No chest pain. No shortness of breath. No diaphoresis. No palpitations. Objective Vital Signs and I&Os Vital Signs Date Time Temp Pulse Resp B/P B/P Pulse O2 O2 Flow FiO2 Mean Ox Delivery Rate 10/18 1404 97.9 89 20 132/90 97 Room Air 10/18 0835 80 158/80 07/ 0647 97.8 80 18 158/80 97 Room Air 10/17 2224 98.4 85 16 168/82 97 Intake & Output 10/18 1600 10/18 0800 10/18 0000 10/17 1600 10/17 0810/17 0000 Intake Total 750 500 800 300 500 Output Total 2889 709 3436 450 Balance 750 -1225 -50 800 -800 50 Intake, Oral 750 500 800 300 500 Number 0 1 Bowel Movements Output, Urine 2087 516 2732 450 Physical Exam: Gen: The patient is in no acute distress HEENT: Normal nose, ears, and oropharynx. Pupils equal bilaterally. Conjunctiva normal. Neck: Supple with no JVD, no masses, and no thyromegaly Lungs: Clear to auscultation with normal respiratory effort Heart: RRR, S1, S2, no murmurs. No peripheral edema, 2+ pulses in the lower extremities bilaterally Abdomen: Soft, nontender, no masses. No hepatomegaly. No splenomegaly Extremities: No clubbing or cyanosis. Normal muscle strength in the upper and lower extremities Skin: Normal skin turgor with no skin ulcers or lesions noted. Neuro: Cranial nerves intact. Sensation intact Current Medications: Current Medications Sig/Shan Start time Last Medication Dose Route Stop Time Status Admin Alprazolam 0.5 MG DAILY NEEDED PRN 10/12 1630 AC 10/18 PO 10/19 1629 1132 Amlodipine Besylate 10 MG DAILY 10/14 09 AC 10/18 PO 0836 Aspirin 325 MG DAILY 10/12 899 AC 10/18 PO 0834 Chlorthalidone 50 MG DAILY 10/15 899 AC 10/18 PO 0835 Docusate Sodium 100 MG BID 10/12 899 AC 10/18 PO 0834 Ibuprofen 800 MG TID PRN 10/14 0812 AC 10/16 PO 1040 Insulin Aspart 0 TIDAC 10/13 799 AC 10/18 SC 1133 Losartan Potassium 100 MG DAILY 10/11 899 AC 10/18 PO 0835 Omeprazole 40 MG BID 10/13 0906 AC 10/18 PO 0836 Oxycodone/ 1 TAB Q6P PRN 10/08 1745 AC 10/18 Acetaminophen PO 1339 Patient Medication 1 ED ONE ONE 10/18 1030 DC 10/18 Teaching ED 10/18 1031 1134 Senna/Docusate Sodium 2 TAB DAILY PRN 10/10 1030 AC 10/13 PO 0847 Tramadol HCl 50 MG Q6 PRN 10/17 1000 AC 10/18 PO 0836 Results Last 48 Hrs of Labs/Mics: Laboratory Tests 10/17/17 1026: Anion Gap 14, Estimated GFR > 60, BUN/Creatinine Ratio 25.6 H, CBC w Diff NO MAN DIFF REQ, RBC 4.30 L, MCV 87.5, MCH 29.3, MCHC 33.5, RDW 14.4, MPV 7.6, Gran % 73.8, Lymphocytes % 11.2 L, Monocytes % 10.6 H, Eosinophils % 3.7, Basophils % 0.7, Absolute Granulocytes 6.0, Absolute Lymphocytes 0.9 L, Absolute Monocytes 0.9 H, Absolute Eosinophils 0.3, Absolute Basophils 0.1 Assessment/Plan Assessment/Plan Assessment: 1. Hypertension, blood pressure partially controlled 2. Hyperlipidemia 3. Tibia fracture, status post surgery Recommendations: * Continue current medications. * Would continue to monitor blood pressure on current medications for now. Hypertension is likely being exacerbated by pain. If further significant elevated blood pressure readings, would consider adding an additional antihypertensive medication, such as doxazosin Continue telemetry? Not applicable
[2017-10-18 22:19] VITALS: BP 136/70
[2017-10-19 05:54] VITALS: BP 138/78
--- NOTE | 2017-10-19 06:39 | PN- Housestaff ---
See Addendum Subjective Follow-up For: Tibial Plateu fracture S/p ORIF day #7 Complaints: no complaints Subjective: No acute events overnight, has no c/o today. Patient denies chest pain, SOB, fever, night sweats and chills. Ptient states while at home he wears a wrist brace to monitor BP which runs in the 130s/80s, but at his PCPs office it is "always 15-20 points higher, and improves a little when they check it the 2nd time". Feels better with therapy, "i take 2 steps forward and 1 back". Review of Systems Constitutional: Reports: see HPI. EENTM: Denies: blurred vision, visual changes. Cardiovascular: Denies: chest pain, orthopena, palpitations. Respiratory: Denies: cough, short of breath. Gastrointestinal: Denies: abdominal pain, diarrhea. Genitourinary: Denies: dysuria, hematuria. Objective Last 24 Hrs of Vital Signs/I&O Vital Signs Date Time Temp Pulse Resp B/P B/P Pulse O2 O2 Flow FiO2 Mean Ox Delivery Rate 10/19 0554 97.6 73 22 138/78 96 Room Air / 2219 97.8 81 18 136/70 95 07/ 1404 97.9 89 20 132/90 97 Room Air / 0835 80 158/80 Intake & Output / 0800 /03 0000 / 1600 Intake Total 400 750 Output Total 1075 800 Balance -1075 -400 750 Intake, Oral 400 750 Output, Urine 1075 800 Physical Exam General Appearance: Alert, Oriented X3, Cooperative Skin: No Rashes HEENT: Atraumatic, EOMI Cardiovascular: Regular Rate, Normal S1, Normal S2 Lungs: Clear to Auscultation, Normal Air Movement Abdomen: Normal Bowel Sounds, Soft Neurological: Normal Speech Extremities: area surrounding surgical site on Left tibia has decreasign erythema, pt. remains tender to palpation over tibial shaft, no discharge appreciated. , Left foot 1+ edema Vascular: Normal Pulses Assessment/Plan Assessment: Mr. Diane is a 62yo M from [place], has a PMHx significant for hypertension, anxiety and depression who was brought in by ambulance after he sustained a fall from 3 stairs at his Fiance's house. Patient is s/p ORIF Day #6, and is currently working with PT to be on minimal assitance. Assessment: 1. Tibial Fracture- s/p ORIF Day #7 2. Hypertensive Urgency- Resolved Patient currently on 3 drug regiment, remains consistently in 160s SBP. Renal US on 10/15/17 is negative for KODI. ECHO on 10/10/17- LVEF is 55%. Followed by Surveillance Supervisor Dr. Montes, recommends Doxazosin if need another med for BP control. 3. History of Hypertension 4. History of Diabetes Plan: * Discharge today * Pain control, patient is currently on Tramadol, Percocet, * Continue Anti-HTN medication- Chlorthalidone, Amlodipine, Losartan * Continue Daily glucose monitoring and Insulin SS * Requires outpatient and ortho follow up Problem List: 1. Tibial plateau fracture, left Pain Ratin Pain Location: Left Tibial Shaft Pain Goal: Pain 4 or less Pain Plan: Percocet Tomorrow's Labs & Rationales: N/A Consulting Request: Consulting Specialty: Orthopedics
[2017-10-19] MEDS ORDERED: COZAAR100 M1 PO ×2 (11:42→12:12)
[2017-10-19] MEDS ORDERED: NORVASC10 M1 PO (11:42)
[2017-10-19] MEDS ORDERED: TRAMADOL HCL50 M1 PO ×2 (11:45→12:12)
[2017-10-19] MEDS ORDERED: PERCOCET 7.5-31 EACH PO ×2 (11:45→12:12)
[2017-10-19] MEDS ORDERED: OMEPRAZOLE40 M1 PO (12:12)
[2017-10-19] MEDS ORDERED: HYDROCHLOROTHIA25 M1 PO (12:12)
[2017-10-19] MEDS ORDERED: AMLODIPINE BESY10 M1 PO (12:12)
[2017-10-19] MEDS ORDERED: ASPIRIN325 M2 PO (12:12)
[2017-10-19] MEDS ORDERED: TYLENOL ARTHRI650 M1 PO (12:12)
[2017-10-19] MEDS ORDERED: SENNA S TABLET1 EACH PO (12:12)
--- NOTE | 2017-10-19 13:26 | PN- Cardiology ---
Subjective Subjective: No chest pain. No palpitations. No shortness of breath. No diaphoresis. No nausea or vomiting. Objective Vital Signs and I&Os Vital Signs Date Time Temp Pulse Resp B/P B/P Pulse O2 O2 Flow FiO2 Mean Ox Delivery Rate 10/19 822 73 138/78 10/19 08 73 138/78 10/19 0554 97.6 73 22 138/78 96 Room Air 10/18 2219 97.8 81 18 136/70 95 10/18 1404 97.9 89 20 132/90 97 Room Air Intake & Output 10/19 1600 10/19 0810/19 0000 10/18 1600 10/18 0810/18 0000 Intake Total 450 400 750 500 Output Total 400 8371 505 8187 550 Balance -400 -875 -400 750 -1225 -50 Intake, Oral 450 400 750 500 Number 0 Bowel Movements Output, Urine 400 2375 934 5924 550 Physical Exam: Gen: The patient is in no acute distress HEENT: Normal nose, ears, and oropharynx. Pupils equal bilaterally. Conjunctiva normal. Neck: Supple with no JVD, no masses, and no thyromegaly Lungs: Clear to auscultation with normal respiratory effort Heart: RRR, S1, S2, no murmurs. No peripheral edema, 2+ pulses in the lower extremities bilaterally Abdomen: Soft, nontender, no masses. No hepatomegaly. No splenomegaly Extremities: No clubbing or cyanosis. Normal muscle strength in the upper and lower extremities Skin: Normal skin turgor with no skin ulcers or lesions noted. Neuro: Cranial nerves intact. Sensation intact Current Medications: Current Medications Sig/Shan Start time Last Medication Dose Route Stop Time Status Admin Alprazolam 0.5 MG DAILY NEEDED PRN 10/12 1630 AC 10/18 PO 10/19 1629 1132 Amlodipine Besylate 10 MG DAILY 10/14 899 AC 10/19 PO 0823 Aspirin 325 MG DAILY 10/12 899 AC 10/19 PO 0823 Chlorthalidone 50 MG DAILY 10/15 899 AC 10/19 PO 0823 Docusate Sodium 100 MG BID 10/12 899 AC 10/19 PO 0823 Ibuprofen 800 MG TID PRN 10/14 0812 AC 10/16 PO 1040 Insulin Aspart 0 TIDAC 10/12 08 AC 10/19 SC 1255 Losartan Potassium 100 MG DAILY 10/11 899 AC 10/19 PO 0823 Omeprazole 40 MG BID 10/13 0906 AC 10/19 PO 0823 Oxycodone/ 1 TAB Q6P PRN 10/08 1745 AC 10/19 Acetaminophen PO 0823 Senna/Docusate Sodium 2 TAB DAILY PRN 10/10 1030 AC 10/13 PO 0847 Tramadol HCl 50 MG Q6 PRN 10/17 1000 AC 10/19 PO 0623 Assessment/Plan Assessment/Plan Assessment: 1. Hypertension, now under control 2. Hyperlipidemia 3. Tibia fracture, status post surgery Recommendations: * Continue current hypertension medications. * Patient is planned for discharge. * Follow up in the office in 1-2 weeks to adjust hypertension meds as needed. Continue telemetry? Not applicable
[2017-10-19 13:59] VITALS: BP 142/80
[2017-10-19] MEDS ORDERED: CHLORTHALIDONE50 M1 PO (14:09)
[2017-10-19 22:25] VITALS: BP 140/80
[2017-10-20 06:20] VITALS: BP 162/86
--- NOTE | 2017-10-20 11:36 | PN- Housestaff ---
Petra Toledo 10/20/17 1136: Assessment/Plan Consulting Request: Consulting Specialty: Orthopedics Andrew Bello 10/20/17 1220: Subjective Follow-up For: Fall with tibial fractures status post ORIF Subjective: Patient was seen and examined at the bedside. Patient is in much better mood, appreciated receiving bupropion and Ativan yesterday. No other complaints. Review of Systems Constitutional: Reports: no symptoms. Objective Last 24 Hrs of Vital Signs/I&O Vital Signs Date Time Temp Pulse Resp B/P B/P Pulse O2 O2 Flow FiO2 Mean Ox Delivery Rate 10/20 0954 81 162/86 10/20 0954 81 162/86 10/20 0620 98.2 81 20 162/86 96 Room Air 10/19 2225 98.3 94 24 140/80 97 10/19 1359 97.5 88 20 142/80 98 Room Air Intake & Output / 1600 07/04 0800 07/ 0000 Intake Total 200 300 Output Total 1200 Balance -1000 300 Intake, Oral 200 300 Number 0 Bowel Movements Output, Urine 1200 Physical Exam General Appearance: Alert, Oriented X3, Cooperative, No Acute Distress Skin: No Rashes Skin Temp/Moisture Exam: Warm/Dry Sepsis Skin Exam (color): Normal for Ethnicity HEENT: Atraumatic, PERRLA, EOMI Neck: Supple, No JVD, No thryomegaly Cardiovascular: Regular Rate, Normal S1, Normal S2, No Murmurs Lungs: Clear to Auscultation, Normal Air Movement Abdomen: Normal Bowel Sounds, Soft, No Tenderness Neurological: Normal Speech, Strength at 5/5 X4 Ext, Normal Tone, Sensation Intact Extremities: dressing on left tibia; +1 edema LLE Assessment/Plan Assessment: Mr. Diane is a 62yo M from [place], has a PMHx significant for hypertension, anxiety and depression who was brought in by ambulance after he sustained a fall from 3 stairs at his Fiance's house. Patient is s/p ORIF Day #6, and is currently working with PT to be on minimal assitance. Assessment: 1. Tibial Fracture- s/p ORIF Day #8 2. Hypertensive Urgency- Resolved Patient currently on 3 drug regiment, remains consistently in 160s SBP. Renal US on 10/15/17 is negative for KODI. ECHO on 10/10/17- LVEF is 55%. Followed by Signal Timer Dr. Montes, recommends Doxazosin if need another med for BP control. 3. History of Hypertension 4. History of Diabetes Problem List: 1. Tibial plateau fracture, left Pain Ratin Pain Location: Left tibial plateau Pain Goal: Pain 4 or less Pain Plan: Percocet Tomorrow's Labs & Rationales: None Discharge Plan Anticipated Discharge (Day): two days Roe LINDSAY,Michelle 10/20/17 1346: Attending MD Review Statement Attending Statement Attending MD Statement: examined this patient, discuss w/resident/PA/LIFE ENRICHMENT DIRECTOR, agreed w/resident/PA/LIFE ENRICHMENT DIRECTOR, reviewed EMR data (avail), discussed with nursing, discussed with case mgmt, reviewed images, amended to note Attending Assessment/Plan: Patient seen and examined, overall doing better. Pain is under control. Patient working with physical therapy actively. Blood pressure noted recently controlled. Plan is for him to continued with physical therapy and manages a safe discharge plan in terms of his home arrangement and patient feels strong enough at home that he will be discharged home. Continue current management.
[2017-10-20 14:00] VITALS: BP 134/64
[2017-10-20 21:54] VITALS: BP 146/70
[2017-10-21 06:30] VITALS: BP 130/76
--- NOTE | 2017-10-21 07:19 | PN- Housestaff ---
See Addendum Petra Toledo 10/21/17 0718: Subjective Follow-up For: tibial fracture Complaints: no complaints Subjective: Patient seen and examined in sitting chair. Patient states he had transferred himself from the bed to the chair, has no complaint of. States pain is improving and left leg. Patient states the material for his ramp is at home and they should begin construction barring rain it should be completed by tomorrow Review of Systems Constitutional: Denies: chills, fever. Cardiovascular: Denies: chest pain, palpitations. Respiratory: Denies: cough, short of breath. Gastrointestinal: Denies: abdominal pain, diarrhea, vomiting. Objective Last 24 Hrs of Vital Signs/I&O Vital Signs Date Time Temp Pulse Resp B/P B/P Pulse O2 O2 Flow FiO2 Mean Ox Delivery Rate 10/21 1415 97.6 83 20 128/62 96 / 0932 88 130/76 07/ 0931 88 130/76 07/ 0630 97.7 87 20 130/76 98 Room Air 10/20 2154 98.4 97 20 146/70 94 Intake & Output 10/21 1600 05 0800 07 0000 Intake Total 480 300 300 Output Total 560 1250 475 Balance -80 -950 -175 Intake, Oral 480 300 300 Number 0 1 Bowel Movements Output, Urine 560 1250 475 Physical Exam General Appearance: Alert, Oriented X3, Cooperative Skin: No Rashes HEENT: Atraumatic, EOMI Neck: Supple, No LAD Cardiovascular: Regular Rate, Normal S1, Normal S2 Lungs: Clear to Auscultation, Normal Air Movement Abdomen: Normal Bowel Sounds, Soft, No Tenderness Extremities: No Edema, Normal Pulses, Brace on left leg, tenderness to palpation over left tibia, no discharge present. Assessment/Plan Assessment: Assessment: Mr. Diane is a 62yo M from [place], has a PMHx significant for hypertension, anxiety and depression who was brought in by ambulance after he sustained a fall from 3 stairs at his Fiance's house. Patient is s/p ORIF Day #9, and is currently working with PT, able to transfer himself from bed to chair. Assessment: 1. Tibial Fracture- s/p ORIF Day #9 2. Hypertensive Urgency- Resolved Patient currently on 3 drug regiment, remains consistently in 160s SBP. Renal US on 10/15/17 is negative for KODI. ECHO on 10/10/17- LVEF is 55%. Followed by Data Modeling Architect Dr. Montes, recommends Doxazosin if need another med for BP control. 3. History of Hypertension 4. History of Diabetes Plan: * Discharge today * Pain control, patient is currently on Tramadol, Percocet, * Continue Anti-HTN medication- Chlorthalidone, Amlodipine, Losartan * Continue Daily glucose monitoring and Insulin SS * Requires outpatient and ortho follow up Problem List: 1. Tibial plateau fracture, left Pain Ratin Pain Location: Left tibia Pain Goal: Pain 4 or less Pain Plan: Percocet, Tramadol Tomorrow's Labs & Rationales: None Consulting Request: Consulting Specialty: Orthopedics Tremaine Asher MD 10/21/17 7705: Attending MD Review Statement Attending Statement Attending MD Statement: examined this patient, discuss w/resident/PA/KEY ACCOUNT DIRECTOR, agreed w/resident/PA/KEY ACCOUNT DIRECTOR, reviewed EMR data (avail), discussed with nursing, discussed with case mgmt, amended to note Attending Assessment/Plan: The patient was seen and discussed with house staff, nursing, and case management. Appears more comfortable at present. Ramps for steps are being built at the home he is staying at while here and girlfriend will obtain bariatric wheelchair. Probable discharge tomorrow.
[2017-10-21 14:15] VITALS: BP 128/62
[2017-10-21 22:24] VITALS: BP 140/70
[2017-10-22 06:20] VITALS: BP 156/94
--- NOTE | 2017-10-22 06:29 | PN- Housestaff ---
See Addendum Subjective Follow-up For: Tibial Fracture Complaints: no complaints Subjective: Patient seen and examined in sitting chair. Patient was trimming stoddard, excited about going home today. States the ramp outside of his house has been built, and the ramp inside is being built. Patient has no c/o, states pain is well controlled with his meds, exicted about the progress he has been making with PT. Review of Systems Constitutional: Denies: chills, diaphoresis, fever. Cardiovascular: Denies: chest pain, palpitations, syncope. Respiratory: Denies: cough, short of breath. Gastrointestinal: Denies: abdominal pain, constipation, diarrhea, nausea, vomiting. Objective Last 24 Hrs of Vital Signs/I&O Vital Signs Date Time Temp Pulse Resp B/P B/P Pulse O2 O2 Flow FiO2 Mean Ox Delivery Rate 10/22 1347 97.5 89 20 140/90 98 Room Air 07/06 0739 98.4 81 18 156/94 07/06 0738 98.4 81 18 156/94 07/06 0620 98.4 81 18 156/94 96 Room Air 07/05 2224 98.1 84 18 140/70 95 Room Air Intake & Output 07/06 1600 07/06 0800 07/06 0000 Intake Total 240 240 Output Total 400 775 1 Balance -400 -535 239 Intake, Oral 240 240 Number 0 Bowel Movements Output, Stool 1 Output, Urine 400 775 Physical Exam General Appearance: Alert, Oriented X3, Cooperative Skin: No Rashes HEENT: Atraumatic, PERRLA, EOMI Neck: Supple, No LAD Cardiovascular: Regular Rate, Normal S1, Normal S2 Lungs: Clear to Auscultation, Normal Air Movement Abdomen: Normal Bowel Sounds, Soft, No Tenderness Extremities: No Cyanosis, No Edema, Normal Pulses, Left leg in brace Assessment/Plan Assessment: Mr. Diane is a 62yo M from [place], has a PMHx significant for hypertension, anxiety and depression who was brought in by ambulance after he sustained a fall from 3 stairs at his Fiance's house. Patient is s/p ORIF Day #9, and is currently working with PT, able to transfer himself from bed to chair. Assessment: 1. Tibial Fracture- s/p ORIF Day #10 2. Hypertensive Urgency- Resolved Patient currently on 3 drug regiment, remains consistently in 160s SBP. Renal US on 10/15/17 is negative for KODI. ECHO on 10/10/17- LVEF is 55%. Followed by Manager Field Dr. Montes, recommends Doxazosin if need another med for BP control. 3. History of Hypertension 4. History of Diabetes Plan: * [facility] * Pain control, patient is currently on Tramadol, Percocet, * Continue Anti-HTN medication- Chlorthalidone, Amlodipine, Losartan * Continue Daily glucose monitoring and Insulin SS * will follow up in outpatient clinic, and Dr. Renae Problem List: 1. Tibial plateau fracture, left Pain Ratin Pain Location: left leg Pain Goal: Pain 4 or less Pain Plan: percocet and tramadol Tomorrow's Labs & Rationales: none Consulting Request: Consulting Specialty: Orthopedics Discharge Plan [facility]charge Disposition[facility] Stable for Discharge? Yes Anticipated Discharge (Day): today
[2017-10-22] MEDS ORDERED: WELLBUTRIN XL300 M2 PO (11:47)
[2017-10-22] MEDS ORDERED: METFORMIN HCL500 M3 PO (11:47)
[2017-10-22] MEDS ORDERED: XANAX0.5 M1 PO (11:48)
[2017-10-22 13:47] VITALS: BP 140/90
== END 2017-10-22 18:23 | disposition home health service (06) | DRG 494 ==
LOC: DELPENDDIS → ERH 10:34 → ERHI 15:41 → 1NO 15:41 → 2NA 15:41 → ENRESERV 16:27 → ENTRNSPT 17:02 → EDTRNSPT 17:11 → EDTRNSPTSTS 17:11 → EDTRNSPT 17:36 → 1NO 17:47 → CMPTRNSPT 18:00 → 1NO 10-11 07:19 → ENTRNSPT 10-11 19:05 → EDTRNSPTSTS 10-11 19:11 → EDTRNSPT 10-11 19:11 → CMPTRNSPT 10-11 19:37 → 2NA 10-11 19:43 → CMPTRNSPT 10-11 19:51 → 2NA 10-12 08:33 → ENPENDDIS 10-19 12:27 → 2NA 10-22 18:23
PROVIDERS: Emergency Medicine; Internal Medicine; Student in an Organized Health Care Education/Training Program
PROC: 0QSH04Z Reposition Left Tibia with Internal Fixation Device, Open Approach (ICD-10-PCS; principal; 2017-10-11)
DX: S82.142A Displaced bicondylar fracture of left tibia, initial encounter for closed fracture (principal); W10.9XXA Fall (on) (from) unspecified stairs and steps, initial encounter; I10 Essential (primary) hypertension; I16.0 Hypertensive urgency; E11.9 Type 2 diabetes mellitus without complications; Z79.84 Long term (current) use of oral hypoglycemic drugs; F32.9 Major depressive disorder, single episode, unspecified; E78.5 Hyperlipidemia, unspecified; Y92.009 Unspecified place in unspecified non-institutional (private) residence as the place of occurrence of the external cause; F41.9 Anxiety disorder, unspecified
CPT/HCPCS: 1NSP; 2NAP; 36415; 36592; 71045; 73560-LT; 73562-LT; 73590-LT; 81001; 81003; 82436; 87040; 87086; 93005; 93010; 93306; 96372; 96374; 96375; 97110-GO; 97116-GO; 97162-GP; 97164-GP; 97530-GO; C1713; G0480; J0131; J1650; J1885; J3490